=== PATIENT | male | born 1960 | race Caucasian/White ===

== ENCOUNTER 2022-12-08 12:10 | Inpatient (IN) ==
[2022-12-08 14:04] LABS: Basophils # (auto) 0.05 K/uL (0-0.2); Basophils % (auto) 1.2 %; Eosinophils # (auto) 0.13 K/uL (0-0.50); Eosinophils % (auto) 3.1 %; Hematocrit (blood only) 40.7 % (42.0-52.0); Hemoglobin 14.1 g/dl (14.0-18.0); Lymphocytes # (auto) 0.69 K/uL (1.2-3.4); Lymphocytes % (auto) 16.3 %; Mean Corpuscular Hemoglobin 31.6 pg (25.0-34.0); Mean Corpuscular Hgb Conc 34.6 g/dL (32.0-36.0); Mean Corpuscular Volume 91.3 fL (80.0-100.0); Mean Platelet Volume 9.6 fL (9.4-12.4); Monocytes # (auto) 0.27 K/uL (0.11-0.59); Monocytes % (auto) 6.4 %; Neutrophils # (auto) 3.09 K/uL (1.40-6.50); Platelet Count 149 K/uL (130-400); RDW Coefficient of Variation 16.8 % (11.5-14.5); RDW Standard Deviation 54.6 fL (36.4-46.3); Red Blood Count 4.46 M/uL (4.70-6.10); White Blood Count 4.23 K/ul (4.8-10.8)
[2022-12-08 14:20] LABS: INR 1.1 (0.9-1.1); Partial Thromboplastin Time 27.3 Seconds (21.0-31.0); Prothrombin Time 11.3 Seconds (9.0-12.0)
[2022-12-08 15:10] LABS: Alanine Aminotransferase 14 U/L (7-52); Albumin Globulin Ratio 0.8 (0.9-2); Albumin Level 3.4 gm/dl (3.4-5.0); Alkaline Phosphatase 166 U/L (34-104); Anion Gap 6 (3-11); Aspartate Aminotransferase 31 U/L (13-39); BUN Creatinine Ratio 10.2 (10-20); Bilirubin,Total 0.9 mg/dl (0.2-1.0); Blood Urea Nitrogen 5 mg/dl (6-23); Calcium 9.2 mg/dl (8.5-10.1); Carbon Dioxide 27 mmol/L (21-32); Chloride 101 mmol/L (98-107); Est GFR (African American) 134.8 ml/min; Est GFR (Non-African American) 116.3 ml/min; Globulin 4.5 gm/dl (2.5-4.0); Glucose 98 mg/dl (70-99(Fasting)); Magnesium 1.5 mg/dl (1.7-2.4); Potassium 3.9 mmol/L (3.5-5.1); Sodium 134 mmol/L (136-145); Total Protein 7.9 gm/dl (6.0-8.3)
--- NOTE | 2022-12-08 15:10 | XRay Report ---
SINGLE VIEW CHEST CLINICAL HISTORY: Dyspnea. FINDINGS: An AP, portable, upright chest radiograph is obtained. No prior studies are available for c omparison at the time of dictation. The examination is degraded by portable technique and apical lord otic positioning. The heart appears enlarged and is partially obscured. There is a moderate layering right pleural effusion with consolidation of the right lower lung. Left lung is grossly clear noting basilar atelectasis. No pneumothorax is seen. The skeletal structures are osteopenic. There are heale d left-sided rib fractures. IMPRESSION: 1. Moderate layering right pleural effusion with associated consolidation of the right lower lung. 2. The left lung appears clear. 3. Cardiomegaly. ACT 112: Negative or not required by law. Electronically signed by: Tommie Dan M.D. 12/08/2022 3:08 PM
--- NOTE | 2022-12-08 17:18 | Electrocardiogram Report ---
Test Reason : Blood Pressure : / mmHG Vent. Rate : 103 BPM Atrial Rate : 103 BPM P-R Int : 180 ms QRS Dur : 080 ms QT Int : 338 ms P-R-T Axes : 053 -02 019 degrees QTc Int : 442 ms Poor data quality, interpretation may be adversely affected Sinus tachycardia with occasional Premature ventricular complexes Low voltage QRS Cannot rule out Anterior infarct , age undetermined Abnormal ECG No previous ECGs available Confirmed by Theodore Whitney ([id number]) on 12/08/2022 5:17:43 PM Referred By: Confirmed By:Martín Whitney
[2022-12-08] MEDS ORDERED: FUROSEMIDE 40 MG/4 ML VIAL IV ONE ×2 (18:04→18:13)
[2022-12-08] MEDS ORDERED: SPIRONOLACTONE 100 MG TAB PO STA (18:13)
--- NOTE | 2022-12-08 18:13 | History & Physical Report ---
Date of Service December 08, 2022 Assessment & Plan (1) Decompensation of cirrhosis of liver: (2) Anasarca: (3) Ascites due to alcoholic cirrhosis: (4) Portal hypertensive gastropathy: (5) Alcoholic cirrhosis of liver with ascites: Plan This is a 62-year-old male who has significant past medical history of alcoholic cirrhosis of liver with ascites, portal hypertensive gastropathy, MARCO, hypertension, thrombocytopenia, history of MRSA who presents to ED at referral of cardiology in setting of decompensated cirrhosis. Decompensated cirrhosis Anasarca Alcoholic cirrhosis of liver with ascites Portal hypertensive gastropathy Admit to PCU Consult gastroenterology Diuresis with IV Lasix 60 mg twice daily Continue Aldactone 100 mg twice daily Strict I's and O's, daily weights Fluid restrict 1800 mL Perform diagnostic and therapeutic paracentesis with cell count, protein, LDH albumin Hypomagnesemia mag 1g x 2 in ED follow repeat mag level Alcohol abuse pt with long standing hx of alcohol use do not feel pt requires AWSS protocol at this time continue thiamine and folic acid Dvt ppx: SQ heparin Dispo: PCU, CM consult FULL CODE PCP: Cathy Peguero Pt was seen and examined in collaboration with Dr. Antonio, please see addendum A total of 75 minutes were spent with greater than 50% of that time face to face with the patient, personally reviewing all current laboratories, imaging studies, past medication reconciliation, outpatient chart review, and discussion with specialists to collaborate care for the patient with attending. Please see attending documentation for corrections and/or additions. History of Present Illness Chief Complaint: SOB x 2 days, referred by cardiology. Primary Care Provider: Cathy Peguero This is a 62-year-old male who has significant past medical history of alcoholic cirrhosis of liver with ascites, portal hypertensive gastropathy, MARCO, hypertension, thrombocytopenia, history of MRSA who presents to ED at referral of cardiology in setting of decompensated cirrhosis. He was sent to Cardiology today from PCP due to fluid retention. Saturator referred to ER due to anasarca 2/2 Cirrhosis. Pt c/o of SOB since yesterday. He reports worsened lower extremity swelling and abd distension over past 2-3 weeks. He last had a paracentesis in October. He was last hospitalized in September and requiring a SNF stay for rehab. He denies f/c/s, chest pain, URI sx, n/v/d, abd pain, change in bowel or urinary habits. He follows with GI, Dr. Fields. He does admit to not always being compliant with his meds due to travel, etc. Pt reports being under a lot of stress the past week due to roommate having a run in with the law. Due to stress he hasn't be taking meds as prescribed. He does ambulate with a walker due to knee pain. He does have chronic wounds to lower ext with which he has wrapped once a week.He does not wish to return to rehab as he wishes to save his days for upcoming knee replacement. He does wish to have help with finding subsequent housing.In ED patient made hemodynamically stable although mildly hypertensive and tachycardic.He did have anasarca along with significant ascites. CBC and CMP concerning for sodium 134, mag 1.5, DBC 4.23 and H&H s table 14.1 and 40.7. Chest x-ray with significant layering right-sided pleural effusion. He received Lasix 80 mg IV along with spironolactone 100 mg x 1. Allergies Allergy/AdvReac Type Severity Reaction Status Date / Time ciprofloxacin Allergy Intermediate Rash Verified 12/08/22 18:32 levofloxacin Allergy Intermediate ERYTHEMATOUS Verified 12/08/22 18:32 RASH Home Medications Medication Instructions Recorded Confirmed Type acetaminophen 325 mg tablet 650 mg PO Q6 PRN FEVER/PAIN 12/08/22 12/08/22 History (Tylenol) allopurinol 100 mg tablet 200 mg PO BID 12/08/22 12/08/22 History calamine phenolated lotion 1 applic topical BID PRN ITCHINESS 12/08/22 12/08/22 History calcium carbonate 300 mg (750 mg) 300 mg PO Q6H PRN Heartburn 12/08/22 12/08/22 History chewable tablet (Tums E-X) cholestyramine-aspartame 4 gram 4 g PO BID PRN Diarrhea 12/08/22 12/08/22 History oral powder (Prevalite) cyclobenzaprine 10 mg tablet 10 mg PO BID PRN MUSCLE SPASMS 12/08/22 12/08/22 History diclofenac sodium 1 % topical gel 2 g topical QID PRN Pain 12/08/22 12/08/22 History diphenhydramine HCl 25 mg capsule 25 mg PO Q6H PRN Itching 12/08/22 12/08/22 History (Benadryl) folic acid 1 mg tablet 1 mg PO DAILY 12/08/22 12/08/22 History furosemide 40 mg tablet (Lasix) 80 mg PO QAM 12/08/22 12/08/22 History hydrocodone 10 mg-acetaminophen 1 tab PO Q8H PRN Pain 12/08/22 12/08/22 History 325 mg tablet loratadine 10 mg tablet (Claritin) 10 mg PO DAILY PRN ITCHINESS 12/08/22 12/08/22 History multivitamin 1 tab PO DAILY 12/08/22 12/08/22 History nystatin 100,000 unit/gram topical 1 applic topical BID PRN ABD FOLDS 12/08/22 12/08/22 History cream NEEDED ondansetron HCl 4 mg tablet 4 mg PO Q6H PRN NAUSEA/VOMITING 12/08/22 12/08/22 History potassium chloride 20 mEq 40 meq PO BID 12/08/22 12/08/22 History tablet,extended release(part/cryst) spironolactone 100 mg tablet 100 mg PO BID 12/08/22 12/08/22 History tamsulosin 0.4 mg capsule 0.4 mg PO DAILY 12/08/22 12/08/22 History thiamine HCl (vitamin B1) 100 mg 100 mg PO DAILY 12/08/22 12/08/22 History tablet (Vitamin B-1) vitamin E 670 mg (1,000 unit) 670 mg PO DAILY 12/08/22 12/08/22 History capsule zinc acetate 50 mg (zinc) capsule 50 mg PO DAILY 12/08/22 12/08/22 History Past Med/Surg History Medical History (Updated 12/08/22 @ 19:15 by Sumi Osborne PA-C) Alcoholic cirrhosis of liver with ascites Esophageal varices GERD (gastroesophageal reflux disease) HTN (hypertension) Portal hypertensive gastropathy Surgical History (Updated 12/08/22 @ 18:15 by Sumi Osborne PA-C) History of colonoscopy History of lumbar fusion Hx of esophagogastroduodenoscopy Stigmata of prior banding/mild portal gastropathy and body and fundus/portal duodenopathy with edema and congestion of duodenum 05/2022 Hx of tonsillectomy Family History (Updated 12/08/22 @ 19:14 by Sumi Osborne PA-C) Father Alzheimer disease Mother Pneumonia Social History (Updated 12/08/22 @ 19:14 by Suim Osborne PA-C) Smoking Status: Never smoker Hx Alcohol Use: Yes Alcohol type: beer and hard liquor Alcohol Intake Frequency: 4 or More x per/Week Hx Substance Use: No Preferred Language: Bengali Feels Safe at Home: No Review of Systems Review of Systems: All systems reviewed & are unremarkable except as noted in HPI & below Physical Exam Physical Exam: Please refer to Dr. Antonio addendum for physical exam findings. Results & Data Results & Data ([facility]) Vital Signs (Past 12 Hours) Vital Signs Temp Pulse Pulse Resp BP BP Pulse Ox 12/08/22 18:04 23 91 12/08/22 17:49 98 H 23 152/86 H 93 12/08/22 17:47 95 12/08/22 17:44 12/08/22 12:24 36.8 C 101 H 19 145/89 H 97 O2 Del Method O2 Flow Rate 12/08/22 18:04 Room Air 12/08/22 17:49 Nasal Cannula 2 12/08/22 17:47 Nasal Cannula 2 12/08/22 17:44 Nasal Cannula 2 12/08/22 12:24 Nasal Cannula 2 Diagnostic Findings Chest X-Ray 12/08/22 12:25 SINGLE VIEW CHEST CLINICAL HISTORY: Dyspnea. FINDINGS: An AP, portable, upright chest radiograph is obtained. No prior studies are available for comparison at the time of dictation. The examination is degraded by portable technique and apical lordotic positioning. The heart appears enlarged and is partially obscured. There is a moderate layering right pleural effusion with consolidation of the right lower lung. Left lung is grossly clear noting basilar atelectasis. No pneumothorax is seen. The skeletal structures are osteopenic. There are healed left-sided rib fractures. IMPRESSION: 1. Moderate layering right pleural effusion with associated consolidation of the right lower lung. 2. The left lung appears clear. 3. Cardiomegaly. ACT 112: Negative or not required by law. Electronically signed by: Tommie Dan M.D. 12/08/2022 3:08 PM Medications Administered Medication List Magnesium Sulfate/Dextrose (Magnesium Sulfate / D5w) 1 gm in 100 mls @ 100 mls/hr IV Q1H CHRISTIAN Stop: 12/08/22 20:43 Last Admin: 12/08/22 19:04 Dose: 100 mls/hr Documented By: JR Discontinued Medications Furosemide (Furosemide 40 Mg/4 Ml Vial) 40 mg IV ONE ONE Stop: 12/08/22 18:05 Last Admin: 12/08/22 18:34 Dose: Not Given Documented By: NMS Furosemide (Furosemide 40 Mg/4 Ml Vial) 80 mg IV ONE ONE Stop: 12/08/22 18:14 Last Admin: 12/08/22 19:02 Dose: 80 mg Documented By: JR Spironolactone (Spironolactone 100 Mg Tab) 100 mg PO NOW STA Stop: 12/08/22 18:14 Last Admin: 12/08/22 19:03 Dose: 100 mg Documented By: JR ECG Rate (beats per minute): 103 Rhythm: sinus tachycardia Findings: + PVC COVID-19 Results Results COVID-19 Adm Lab Results: RBC 4.46 M/uL (4.70-6.10) L 12/08/22 WBC 4.23 K/ul (4.8-10.8) L 12/08/22 Hgb 14.1 g/dl (14.0-18.0) 12/08/22 Hct 40.7 % (42.0-52.0) L 12/08/22 Plt Count 149 K/uL (130-400) 12/08/22 Neutrophils (%) (Auto) 73.0 % 12/08/22 Lymphocytes (%) (Auto) 16.3 % 12/08/22 Monocytes # (Auto) 0.27 K/uL (0.11-0.59) 12/08/22 Eosinophils # (Auto) 0.13 K/uL (0-0.50) 12/08/22 Immature Granulocyte % (Auto) 0.0 % 12/08/22 Neutrophils # (Auto) 3.09 K/uL (1.40-6.50) 12/08/22 Lymphocytes # (Auto) 0.69 K/uL (1.2-3.4) L 12/08/22 Monocytes # (Auto) 0.27 K/uL (0.11-0.59) 12/08/22 Eosinophils # (Auto) 0.13 K/uL (0-0.50) 12/08/22 Basophils # (Auto) 0.05 K/uL (0-0.2) 12/08/22 Immature Granulocyte # (Auto) 0.00 K/uL (0.01-0.20) L 12/08 Na 134 mmol/L (136-145) L 12/08/22 K 3.9 mmol/L (3.5-5.1) 12/08/22 Cl 101 mmol/L (98-107) 12/08/22 CO2 27 mmol/L (21-32) 12/08/22 Anion Gap 6 (3-11) 12/08/22 BUN 5 mg/dl (6-23) L 12/08/22 Creatinine 0.49 mg/dl (0.6-1.4) L 12/08/22 BUN/Creatinine Ratio 10.2 (10-20) 12/08/22 Glucose Level 98 mg/dl (70-99(Fasting)) 12/08/22 Ca 9.2 mg/dl (8.5-10.1) 12/08/22 Total Bilirubin 0.9 mg/dl (0.2-1.0) 12/08/22 AST/SGOT 31 U/L (13-39) 12/08/22 ALT/SGPT 14 U/L (7-52) 12/08/22 Alkaline Phosphatase 166 U/L (34-104) H 12/08/22 Total Protein 7.9 gm/dl (6.0-8.3) 12/08/22 Albumin 3.4 gm/dl (3.4-5.0) 12/08/22 Globulin 4.5 gm/dl (2.5-4.0) H 12/08/22 Albumin/Globulin Ratio 0.8 (0.9-2) L 12/08/22 PTT 27.3 Seconds (21.0-31.0) 12/08/22 INR 1.1 (0.9-1.1) 12/08/22 SARS-CoV-2, RNA, NAAT NEGATIVE (NEGATIVE) 12/08/22 Chest X-Ray 12/08/22 Code Status & VTE Plan Code Status FULL CODE Supervising Physician Co-Signing Physician Notes Date of Service: December 08, 2022 History and physical exam performed by me. History notable for 62-year-old man with hypertension, alcoholic cirrhosis who presents with abdominal distention, weight gain, shortness of breath, orthopnea over the past couple of weeks. Acknowledges poor adherence to medication due to home issues. Reports adherence to fluid and low-salt diet. Denies any abdominal pain, fevers or chills. On physical exam, General: Obese, in noo acute distress Eyes: PERRL, conjunctivae normal, not pale, anicteric sclerae, EOM intact bilaterally ENMT: External ear and nose normal, oropharynx normal Respiratory: Normal respiratory effort, no respiratory distress,diminished breath sounds lung bases Cardiovascular: RRR S1 S2 Gastrointestinal (Abdomen): Abdomen is markedly distended, non-tender to palpation, normal bowel sounds Musculoskeletal: Bilateral pedal edema wrapped Neurologic: Alert and oriented x 3, No focal weakness, sensation grossly intact Psychiatric: Alert and oriented x 3, euthymic affect, no depressed affect Labs notable for sodium of 134, alkaline phosphatase of 166, magnesium of 1.5. Chest x-ray reviewed, showed moderate right pleural effusion. Decompensated liver cirrhosis with ascites Pleural effusion Patient counseled on need for medication adherence. ER ordered IV Lasix 80 mg. We will continue IV 60 mg twice daily for now. Continue spironolactone Paracentesis ordered. Monitor I/O Daily weights GI consult Check MELD labs Other plans as detailed by Sumi Osborne PA-C
--- NOTE | 2022-12-08 18:15 | Emergency Department Note ---
Impression & Plan Alcoholic cirrhosis of liver with ascites, Anasarca, HTN (hypertension) ED Provider Note NAME: DARIO SALMERON AGE: 62 SEX: M : 1960 ARRIVES VIA: Ambulance INFORMANT: [Patient][, ] ED PROVIDER(S): [Marc Lynn MD] CHIEF COMPLAINT: Shortness of breath, weight gain MEDICAL DECISION MAKING: Patient presented due to concern for worsening shortness of breath exertional dyspnea and orthopnea with weight gain and leg swelling. Blood work was obtained and IV was established. The patient was noted to have leukopenia with a white count of 4.2 normal hemoglobin and platelet count. The patient's kidney function was unremarkable. Hyponatremia 134. LFTs with an alk phos that was elevated 166 but otherwise unremarkable. COVID-negative. Patient's chest x-ray shows moderate layering right pleural effusion with consolidation of the right lower lung. Left lung is clear. Patient was ordered Lasix 80 IV as well as Aldactone 100 p.o. Patient was admitted to the medicine service by Sumi Osborne PA-C and Dr. Sood. Prior /Outside records reviewed:I did review the patient's most recent cardiology visit from Dr. Scotty harmon [facility]. Patient is on Aldactone 100 mg twice daily. Is also on Lasix 80 mg in the morning patient's blood work was reviewed from September 2022 patient's BUN and creatinine of 28 and 1 respectively. Hyponatremia at 126. Differential diagnosis: Reactive airway disease, pneumonia, pneumothorax, COPD, CHF, infections, cardiac ischemia, pulmonary embolism, musculoskeletal, gastrointestinal, as well as other pathologies. Diagnostics, as interpreted by me: ECG: Sinus tachycardia with PVCs, rate of 103, normal intervals normal axis no ST elevations. Cardiac monitoring: An order was placed for continuous cardiac monitoring. The monitor shows a rate of 98 with sinus rhythm. [Patient was placed on pulse oximetry] Medical decision rules: [none] Imaging studies: See below HPI: Patient presents as a referral from cardiology office as he was seen by Dr. Scotty harmon. The patient does have a known history of cirrhosis and does still drink alcohol but not at the rate that he used to. The patient denies any chest pains but has had associated shortness of breath leg swelling. The patient has noticed 20 pound weight gain since he was seen by his primary care doctor 1 week prior. He has noticed increasing leg swelling and abdominal distention. Patient denies any cough or fever. Patient states that he is compliant with his medications but did not take his morning medications today. The patient is prescribed Lasix and Aldactone. PAST MEDICAL HISTORY: [See Below] PAST SURGICAL HISTORY: [See Below] SOCIAL HISTORY: [See Below] HOME MEDICATIONS: [See Below] ALLERGIES: [See Below] VITALS: [See Below] PHYSICAL EXAMINATION: GENERAL: NAD, [wearing a mask,] non-toxic. EYE EXAM: Normal conjunctiva. PERRL, no anisocoria and EOM's grossly intact w/o pain. NECK: Supple, no nuchal rigidity, no adenopathy, non-tender. No signs of menin gismus. FROM of the neck with good chin to chest and neck extension. No stridor. LUNGS: Decreased breath sounds right chest. HEART: NSR, no MRG. ABDOMEN: Abdomen soft, abdominal distention, normo-active bowel sounds, no masses, no rebound or guarding. BACK: No CVA TTP. SKIN: No rashes and no bruising. UPPER EXTREMITIES: Upper extremities are grossly normal. LOWER EXTREMITIES: Grossly normal, bilateral pitting lower extremity edema. No crepitus NEURO EXAM: A&O x3, cranial nerves II-XII grossly intact, normal speech, moves all 4 extremities. Past Med/Surg History Medical History Alcoholic cirrhosis of liver with ascites Esophageal varices GERD (gastroesophageal reflux disease) HTN (hypertension) Portal hypertensive gastropathy Surgical History History of colonoscopy History of lumbar fusion Hx of esophagogastroduodenoscopy Stigmata of prior banding/mild portal gastropathy and body and fundus/portal duodenopathy with edema and congestion of duodenum 05/2022 Hx of tonsillectomy Family History Father Alzheimer disease Mother Pneumonia Social History Smoking Status: Never smoker Hx Alcohol Use: Yes Alcohol type: hard liquor Alcohol Intake Frequency: 4 or More x per/Week Hx Substance Use: No Preferred Language: Urdu Communication Ability: Effective Starter Cup Powder Mixer Required: No Beliefs That Will Affect Care: None Current Living Situation: Other Current Living Situation Comment: with roommate Feels Safe at Home: No Is there a partner from a previous relationship who is m aking you feel unsafe now?: No Any Concerns about Your Family Situation: No Would You Like to Speak to Someone About Your Situation: No Safety Concerns: Afraid for Self Assistive Devices: Cane and Walker Allergies Allergies Allergy/AdvReac Type Severity Reaction Status Date / Time ciprofloxacin Allergy Intermediate Rash Verified 12/08/22 18:32 levofloxacin Allergy Intermediate ERYTHEMATOUS Verified 12/08/22 18:32 RASH Home Meds Home Medications Medication Instructions Recorded Confirmed acetaminophen 325 mg tablet 650 mg PO Q6 PRN FEVER/PAIN 12/08/22 12/08/22 (Tylenol) allopurinol 100 mg tablet 200 mg PO BID 12/08/22 12/08/22 calamine phenolated lotion 1 applic topical BID PRN ITCHINESS 12/08/22 12/08/22 calcium carbonate 300 mg (750 mg) 300 mg PO Q6H PRN Heartburn 12/08/22 12/08/22 chewable tablet (Tums E-X) cholestyramine-aspartame 4 gram 4 g PO BID PRN Diarrhea 12/08/22 12/08/22 oral powder (Prevalite) cyclobenzaprine 10 mg tablet 10 mg PO BID PRN MUSCLE SPASMS 12/08/22 12/08/22 diclofenac sodium 1 % topical gel 2 g topical QID PRN Pain 12/08/22 12/08/22 diphenhydramine HCl 25 mg capsule 25 mg PO Q6H PRN Itching 12/08/22 12/08/22 (Benadryl) folic acid 1 mg tablet 1 mg PO DAILY 12/08/22 12/08/22 furosemide 40 mg tablet (Lasix) 80 mg PO QAM 12/08/22 12/08/22 hydrocodone 10 mg-acetaminophen 1 tab PO Q8H PRN Pain 12/08/22 12/08/22 325 mg tablet loratadine 10 mg tablet (Claritin) 10 mg PO DAILY PRN ITCHINESS 12/08/22 12/08/22 multivitamin 1 tab PO DAILY 12/08/22 12/08/22 nystatin 100,000 unit/gram topical 1 applic topical BID PRN ABD FOLDS 12/08/22 12/08/22 cream NEEDED ondansetron HCl 4 mg tablet 4 mg PO Q6H PRN NAUSEA/VOMITING 12/08/22 12/08/22 potassium chloride 20 mEq 40 meq PO BID 12/08/22 12/08/22 tablet,extended release(part/cryst) spironolactone 100 mg tablet 100 mg PO BID 12/08/22 12/08/22 tamsulosin 0.4 mg capsule 0.4 mg PO DAILY 12/08/22 12/08/22 thiamine HCl (vitamin B1) 100 mg 100 mg PO DAILY 12/08/22 12/08/22 tablet (Vitamin B-1) vitamin E 670 mg (1,000 unit) 670 mg PO DAILY 12/08/22 12/08/22 capsule zinc acetate 50 mg (zinc) capsule 50 mg PO DAILY 12/08/22 12/08/22 Results & Data (ED) Vital Signs Vital Signs - 24 hr 12/08/22 12:24 12/08/22 17:44 12/08/22 17:47 Temperature 36.8 C Temperature Source Temporal Artery Scan Pulse Rate 101 H Pulse Rate [Apical] Respiratory Rate 19 Respiratory Effort / Characteristics Non-Labored Respiratory Depth Respiratory Pattern Blood Pressure 145/89 H Blood Pressure [Right Arm] Blood Pressure Mean 107 Blood Pressure Mean [Right Arm] Blood Pressure Position [Right Arm] Pulse Oximetry 97 95 Oxygen Delivery Method Nasal Cannula Nasal Cannula Nasal Cannula Oxygen Flow Rate 2 2 2 Sepsis Recent Fever Within 48 Hours No Sepsis New/Unexplained Change in Mental Status N/A Sepsis Action Taken by Nursing No Action Required 12/08/22 17:49 12/08/22 18:04 Temperature Temperature Source Pulse Rate Pulse Rate [Apical] 98 H Respiratory Rate 23 23 Respiratory Effort / Characteristics Non-Labored Non-Labored Spontaneous Respiratory Depth Normal Normal Respiratory Pattern Regular Regular Blood Pressure Blood Pressure [Right Arm] 152/86 H Blood Pressure Mean Blood Pressure Mean [Right Arm] 108 Blood Pressure Position [Right Arm] Semi-fowlers Pulse Oximetry 93 91 Oxygen Delivery Method Nasal Cannula Room Air Oxygen Flow Rate 2 Sepsis Recent Fever Within 48 Hours Sepsis New/Unexplained Change in Mental Status Sepsis Action Taken by [facility] Medications Current Medication List: was personally reviewed by me Laboratory Data Attestation: I reviewed the patient's lab results. 12/08/22 13:41 12/08/22 13:41 Lab Results 12/08/22 12/08/22 12/08/22 Range/Units 13:41 13:41 13:41 WBC 4.23 L (4.8-10.8) K/ul RBC 4.46 L (4.70-6.10) M/uL Hgb 14.1 (14.0-18.0) g/dl Hct 40.7 L (42.0-52.0) % MCV 91.3 (80.0-100.0) fL MCH 31.6 (25.0-34.0) pg MCHC 34.6 (32.0-36.0) g/dL RDW Std Deviation 54.6 H (36.4-46.3) fL RDW Coeff of Farzad 16.8 H (11.5-14.5) % Plt Count 149 (130-400) K/uL MPV 9.6 (9.4-12.4) fL Immature Gran % (Auto) 0.0 % Neut % (Auto) 73.0 % Lymph % (Auto) 16.3 % [place] % (Auto) 6.4 % Eos % (Auto) 3.1 % Baso % (Auto) 1.2 % Neut # (Auto) 3.09 (1.40-6.50) K/uL Lymph # (Auto) 0.69 L (1.2-3.4) K/uL [place] # (Auto) 0.27 (0.11-0.59) K/uL Eos # (Auto) 0.13 (0-0.50) K/uL Baso # (Auto) 0.05 (0-0.2) K/uL Immature Gran # (Auto) 0.00 L (0.01-0.20) K/uL PT 11.3 (9.0-12.0) Seconds INR 1.1 (0.9-1.1) APTT 27.3 (21.0-31.0) Seconds PTT Ratio 1.0 Sodium 134 L (136-145) mmol/L Potassium 3.9 (3.5-5.1) mmol/L Chloride 101 (98-107) mmol/L Carbon Dioxide 27 (21-32) mmol/L Anion Gap 6 (3-11) BUN 5 L (6-23) mg/dl Creatinine 0.49 L (0.6-1.4) mg/dl Est Cr Clr Drug Dosing Not Reportable Est GFR ( Amer) 134.8 ml/min Est GFR (Non-Af Amer) 116.3 ml/min BUN/Creatinine Ratio 10.2 (10-20) Glucose 98 (70-99(Fasting)) mg/dl Osmolality (280-300) mOsm/kg Calcium 9.2 (8.5-10.1) mg/dl Magnesium 1.5 L (1.7-2.4) mg/dl Total Bilirubin 0.9 (0.2-1.0) mg/dl AST 31 (13-39) U/L ALT 14 (7-52) U/L Alkaline Phosphatase 166 H (34-104) U/L Total Protein 7.9 (6.0-8.3) gm/dl Albumin 3.4 (3.4-5.0) gm/dl Globulin 4.5 H (2.5-4.0) gm/dl Albumin/Globulin Ratio 0.8 L (0.9-2) SARS-CoV-2, RNA, NAAT (NEGATIVE) 12/08/22 12/08/22 Range/Units 13:41 18:05 WBC (4.8-10.8) K/ul RBC (4.70-6.10) M/uL Hgb (14.0-18.0) g/dl Hct (42.0-52.0) % MCV (80.0-100.0) fL MCH (25.0-34.0) pg MCHC (32.0-36.0) g/dL RDW Std Deviation (36.4-46.3) fL RDW Coeff of Farzad (11.5-14.5) % Plt Count (130-400) K/uL MPV (9.4-12.4) fL Immature Gran % (Auto) % Neut % (Auto) % Lymph % (Auto) % [place] % (Auto) % Eos % (Auto) % Baso % (Auto) % Neut # (Auto) (1.40-6.50) K/uL Lymph # (Auto) (1.2-3.4) K/uL [place] # (Auto) (0.11-0.59) K/uL Eos # (Auto) (0-0.50) K/uL Baso # (Auto) (0-0.2) K/uL Immature Gran # (Auto) (0.01-0.20) K/uL PT (9.0-12.0) Seconds INR (0.9-1.1) APTT (21.0-31.0) Seconds PTT Ratio Sodium (136-145) mmol/L Potassium (3.5-5.1) mmol/L Chloride (98-107) mmol/L Carbon Dioxide (21-32) mmol/L Anion Gap (3-11) BUN (6-23) mg/dl Creatinine (0.6-1.4) mg/dl Est Cr Clr Drug Dosing Est GFR ( Amer) ml/min Est GFR (Non-Af Amer) ml/min BUN/Creatinine Ratio (10-20) Glucose (70-99(Fasting)) mg/dl Osmolality 283 (280-300) mOsm/kg Calcium (8.5-10.1) mg/dl Magnesium (1.7-2.4) mg/dl Total Bilirubin (0.2-1.0) mg/dl AST (13-39) U/L ALT (7-52) U/L Alkaline Phosphatase (34-104) U/L Total Protein (6.0-8.3) gm/dl Albumin (3.4-5.0) gm/dl Globulin (2.5-4.0) gm/dl Albumin/Globulin Ratio (0.9-2) SARS-CoV-2, RNA, NAAT NEGATIVE (NEGATIVE) Administered Medications Acetaminophen (Acetaminophen 325 Mg Tab) 650 mg PO Q4H PRN PRN Reason: Pain or Fever Stop: 01/07/23 21:19 Last Admin: 12/09/22 17:34 Dose: 650 mg Documented By: Admin: 12/09/22 03:03 Dose: 650 mg Documented By: LEA Allopurinol (Allopurinol 100 Mg Tab) 200 mg PO BID [facility] Stop: 01/07/23 21:59 Last Admin: 12/09/22 09:08 Dose: 200 mg Documented By: Admin: 12/08/22 22:27 Dose: 200 mg Documented By: LEA Folic Acid (Folic Acid 1 Mg Tab) 1 mg PO DAILY [facility] Stop: 01/08/23 08:59 Last Admin: 12/09/22 09:08 Dose: 1 mg Documented By: REENA Furosemide (Furosemide 40 Mg/4 Ml Vial) 60 mg IV BID17 [facility] Stop: 01/08/23 08:59 Last Admin: 12/09/22 17:34 Dose: 60 mg Documented By: Admin: 12/09/22 09:09 Dose: 60 mg Documented By: REENA Guaifenesin (Guaifenesin 600 Mg Tabcr) 600 mg PO Q12 [facility] Stop: 01/08/23 17:24 Last Admin: 12/09/22 18:39 Dose: 600 mg Documented By: REENA Multivitamins (Multivitamin Tab) 1 tab PO DAILY [facility] Stop: 01/08/23 08:59 Last Admin: 12/09/22 09:08 Dose: 1 tab Documented By: REENA Pantoprazole Sodium (Pantoprazole 40 Mg Tab) 40 mg PO QAM [facility] Stop: 01/08/23 09:29 Last Admin: 12/09/22 12:01 Dose: 40 mg Documented By: REENA Potassium Chloride (Potassium Chloride Crtab 20 Meq Tabcr) 40 meq PO BID [facility] Stop: 01/07/23 21:59 Last Admin: 12/09/22 09:08 Dose: 40 meq Documented By: Admin: 12/08/22 22:27 Dose: 40 meq Documented By: LEA Spironolactone (Spironolactone 100 Mg Tab) 100 mg PO BID [facility] Stop: 01/08/23 08:59 Last Admin: 12/09/22 09:08 Dose: 100 mg Documented By: REENA Tamsulosin HCl (Tamsulosin Hcl 0.4 Mg Cap) 0.4 mg PO DAILY [facility] Stop: 01/08/23 08:59 Last Admin: 12/09/22 09:09 Dose: 0.4 mg Documented By: REENA Thiamine HCl (Thiamine Hcl 100 Mg Tab) 100 mg PO DAILY [facility] Stop: 01/08/23 08:59 Last Admin: 12/09/22 09:09 Dose: 100 mg Documented By: REEAN Zinc Sulfate (Zinc Sulfate 220 Mg Capsule) 220 mg PO DAILY [facility] Stop: 01/08/23 08:59 Last Admin: 12/09/22 09:09 Dose: 220 mg Documented By: REENA Discontinued Medications Albumin Human (Albumin Human 25% 12.5 Gm/50 Ml Vial) 50 gm IV ONE ONE Stop: 12/09/22 09:01 Last Admin: 12/09/22 11:47 Dose: Not Given Documented By: REENA Calcium Carbonate (Calcium Carbonate 500 Mg Chewable Tab) 500 mg PO NOW STA Stop: 12/08/22 23:09 Last Admin: 12/08/22 23:17 Dose: 500 mg Documented By: LEA Furosemide (Furosemide 40 Mg/4 Ml Vial) 40 mg IV ONE ONE Stop: 12/08/22 18:05 Last Admin: 12/08/22 18:34 Dose: Not Given Documented By: STACIA Furosemide (Furosemide 40 Mg/4 Ml Vial) 80 mg IV ONE ONE Stop: 12/08/22 18:14 Last Admin: 12/08/22 19:02 Dose: 80 mg Documented By: Magnesium Sulfate/Dextrose (Magnesium Sulfate / D5w) 1 gm in 100 mls @ 100 mls/hr IV Q1H [facility] Stop: 12/08/22 20:43 Last Infusion: 12/08/22 21:35 Dose: 0 mls/hr Documented By: Admin: 12/08/22 20:33 Dose: 100 mls/hr Documented By: Infusion: 12/08/22 20:04 Dose: 100 mls/hr Documented By: Admin: 12/08/22 19:04 Dose: 100 mls/hr Documented By: Spironolactone (Spironolactone 100 Mg Tab) 100 mg PO NOW STA Stop: 12/08/22 18:14 Last Admin: 12/08/22 19:03 Dose: 100 mg Documented By: Imaging Data Radiologist's Impression: Chest X-Ray 12/08/22 12:25 SINGLE VIEW CHEST CLINICAL HISTORY: Dyspnea. FINDINGS: An AP, portable, upright chest radiograph is obtained. No prior studies are available for comparison at the time of dictation. The examination is degraded by portable technique and apical lordotic positioning. The heart appears enlarged and is partially obscured. There is a moderate layering right pleural effusion with consolidation of the right lower lung. Left lung is grossly clear noting basilar atelectasis. No pneumothorax is seen. The skeletal structures are osteopenic. There are healed left-sided rib fractures. IMPRESSION: 1. Moderate layering right pleural effusion with associated consolidation of the right lower lung. 2. The left lung appears clear. 3. Cardiomegaly. ACT 112: Negative or not required by law. Electronically signed by: Tommie Dan M.D. 12/08/2022 3:08 PM Discharge Plan Visit Data Chief Complaint: Shortness of Breath/Dyspnea Stated Complaint: shortness of breath ED Provider: Marc Lynn Discharge Problem: Alcoholic cirrhosis of liver with ascites, Anasarca, HTN (hypertension) Patient Disposition: Admitted As Inpatient Discharge Instructions Interventions: ED Discharge Assessment Last Done: 12/08/22 20:59
[2022-12-08] MEDS ORDERED: MAGNESIUM SULFATE / D5W 1 GM/100 ML BAG IV STA (18:43)
[2022-12-08] MEDS: MAGNESIUM SULFATE / D5W 1 GM/100 ML BAG IV SCH ×2 (19:04→20:33)
--- NOTE | 2022-12-08 19:08 | Communication Note ---
Date of Service: December 08, 2022 History and physical exam performed by me. History notable for 62-year-old man with hypertension, alcoholic cirrhosis who presents with abdominal distention, weight gain, shortness of breath, orthopnea over the past couple of weeks. Acknowledges poor adherence to medication due to home issues. Reports adherence to fluid and low-salt diet. Denies any abdominal pain, fevers or chills. On physical exam, General: Obese, in noo acute distress Eyes: PERRL, conjunctivae normal, not pale, anicteric sclerae, EOM intact bilaterally ENMT: External ear and nose normal, oropharynx normal Respiratory: Normal respiratory effort, no respiratory distress,diminished breath sounds lung bases Cardiovascular: RRR S1 S2 Gastrointestinal (Abdomen): Abdomen is markedly distended, non-tender to palpation, normal bowel sounds Musculoskeletal: Bilateral pedal edema wrapped Neurologic: Alert and oriented x 3, No focal weakness, sensation grossly intact Psychiatric: Alert and oriented x 3, euthymic affect, no depressed affect Labs notable for sodium of 134, alkaline phosphatase of 166, magnesium of 1.5. Chest x-ray reviewed, showed moderate right pleural effusion. Decompensated liver cirrhosis with ascites Pleural effusion Patient counseled on need for medication adherence. ER ordered IV Lasix 80 mg. We will continue IV 60 mg twice daily for now. Continue spironolactone Paracentesis ordered. Monitor I/O Daily weights GI consult Other plans as detailed by Sumi Osborne PA-C
[2022-12-08] MEDS ORDERED: POLYETHYLENE (MIRALAX) 17 GM PACK PO PRN (21:20)
[2022-12-08] MEDS ORDERED: ONDANSETRON INJ 2 MG/ML 2 ML VIAL IV PRN (21:20)
[2022-12-08] MEDS ORDERED: MAGNESIUM HYDROXIDE SUSP 30 ML UDC PO PRN (21:20)
[2022-12-08] MEDS: allopurinoL 100 MG TAB PO SCH (22:27)
[2022-12-08] MEDS: POTASSIUM CHLORIDE CRTAB 20 MEQ TABCR PO SCH (22:27)
[2022-12-08] MEDS ORDERED: CALCIUM CARBONATE 500 MG CHEWABLE TAB PO STA (23:08)
[2022-12-09] MEDS: ACETAMINOPHEN 325 MG TAB PO PRN ×2 (03:03→17:34)
[2022-12-09 07:03] LABS: Basophils # (auto) 0.04 K/uL (0-0.2); Basophils % (auto) 0.9 %; Eosinophils # (auto) 0.22 K/uL (0-0.50); Eosinophils % (auto) 4.8 %; Hematocrit (blood only) 37.2 % (42.0-52.0); Hemoglobin 13.2 g/dl (14.0-18.0); Immature Granulocytes # (auto) 0.01 K/uL (0.01-0.20); Immature Granulocytes % (auto) 0.2 %; Lymphocytes # (auto) 0.62 K/uL (1.2-3.4); Lymphocytes % (auto) 13.4 %; Mean Corpuscular Hemoglobin 32.6 pg (25.0-34.0); Mean Corpuscular Hgb Conc 35.5 g/dL (32.0-36.0); Mean Corpuscular Volume 91.9 fL (80.0-100.0); Mean Platelet Volume 9.4 fL (9.4-12.4); Monocytes # (auto) 0.38 K/uL (0.11-0.59); Monocytes % (auto) 8.2 %; Neutrophils # (auto) 3.36 K/uL (1.40-6.50); Neutrophils % (auto) 72.5 %; Platelet Count 138 K/uL (130-400); RDW Coefficient of Variation 16.8 % (11.5-14.5); RDW Standard Deviation 55.1 fL (36.4-46.3); Red Blood Count 4.05 M/uL (4.70-6.10); White Blood Count 4.63 K/ul (4.8-10.8)
[2022-12-09 07:20] LABS: Albumin Globulin Ratio 0.8 (0.9-2); Albumin Level 3.3 gm/dl (3.4-5.0); BUN Creatinine Ratio 10.9 (10-20); Bilirubin,Total 1.3 mg/dl (0.2-1.0); Calcium 9.1 mg/dl (8.5-10.1); Est GFR (African American) 128.5 ml/min; Est GFR (Non-African American) 110.9 ml/min; Globulin 4.3 gm/dl (2.5-4.0); Magnesium 1.5 mg/dl (1.7-2.4); Potassium 3.8 mmol/L (3.5-5.1); Total Protein 7.6 gm/dl (6.0-8.3)
[2022-12-09] MEDS ORDERED: ALBUMIN HUMAN 25% 12.5 GM/50 ML VIAL IV ONE (09:00)
[2022-12-09] MEDS: MULTIVITAMIN TAB PO SCH (09:08)
[2022-12-09] MEDS: SPIRONOLACTONE 100 MG TAB PO SCH ×2 (09:08→21:13)
[2022-12-09] MEDS: FOLIC ACID 1 MG TAB PO SCH (09:08)
[2022-12-09] MEDS: allopurinoL 100 MG TAB PO SCH ×2 (09:08→21:13)
[2022-12-09] MEDS: POTASSIUM CHLORIDE CRTAB 20 MEQ TABCR PO SCH ×2 (09:08→21:12)
[2022-12-09] MEDS: ZINC SULFATE 220 MG CAPSULE PO SCH (09:09)
[2022-12-09] MEDS: THIAMINE HCL 100 MG TAB PO SCH (09:09)
[2022-12-09] MEDS: FUROSEMIDE 40 MG/4 ML VIAL IV SCH ×2 (09:09→17:34)
[2022-12-09] MEDS: TAMSULOSIN HCL 0.4 MG CAP PO SCH (09:09)
--- NOTE | 2022-12-09 10:01 | Hospitalist Progress Note ---
Date of Service December 09, 2022 Assessment & Plan (1) Decompensation of cirrhosis of liver: (2) Anasarca: (3) Ascites due to alcoholic cirrhosis: (4) Portal hypertensive gastropathy: (5) Alcoholic cirrhosis of liver with ascites: Plan This is a 62-year-old male who has significant past medical history of alcoholic cirrhosis of liver with ascites, portal hypertensive gastropathy, MARCO, hypertension, thrombocytopenia, history of MRSA who presents to ED at referral of cardiology in setting of decompensated cirrhosis. Decompensated cirrhosis Anasarca Alcoholic cirrhosis of liver with ascites Portal hypertensive gastropathy Admitted to PCU MELD 8 Gastroenterology consulted Diuresis with IV Lasix 60 mg twice daily Continue Aldactone 100 mg twice daily Strict I's and O's, daily weights Fluid restrict 1800 mL Perform diagnostic and therapeutic paracentesis with cell count, protein, LDH albumin Patient diuresed quite a bit with IV Lasix and spironolactone. He was taken for paracentesis, however despite significant abdominal distention, only small ascites identified on ultrasound We will continue with diuresis for now, and we will continue to closely monitor Acute resp. failure w/ hypoxia - currently still on 4 L of suppl. O2 - secondary to above - cont. diuresis - wean off O2 as available Hypomagnesemia replete and monitor Alcohol abuse pt with long standing hx of alcohol use do not feel pt requires AWSS protocol at this time continue thiamine and folic acid Dvt ppx: SQ heparin Dispo: PCU, CM consult FULL CODE PCP: Cathy Peguero Admission and Anticipated Discharge Date Admission Date: December 08, 2022 Subjective Pt seen in follow up of resp. failure w/ hypoxia, d/t fluid overload, decompensated cirrhosis Currently patient is sitting up in bed, in no acute distress, continues to be on supplemental oxygen Reports breathing is easier He has diuresed quite a bit since his admission He was taken for paracentesis, however despite significant abdominal distention, no significant ascites identified on ultrasound No fevers chills chest pain. Mild abdominal discomfort. Review of Systems Review of Systems: All systems reviewed & are unremarkable except as noted in Subjective Physical Exam Physical Exam: General: Obese M, in no acute distress Eyes: PERRL, EOMI. conjunctivae normal, not pale, anicteric sclerae ENMT: External ear and nose normal, oropharynx normal Respiratory: Normal respiratory effort, no respiratory distress,diminished breath sounds lung bases Cardiovascular: RRR, S1 S2 Gastrointestinal (Abdomen): Abdomen is markedly distended, non-tender to palpation, normal bowel sounds Musculoskeletal: + LE edema b/l Neuro/Psych: Alert and oriented x 3, speech fluent, no facial symmetry, moves extremities Results & Data Results & Data ([facility]) Vital Signs (Past 12 Hours) Vital Signs Temp Pulse Pulse Resp BP Pulse Ox O2 Del Method 12/09/22 07:38 36.9 C 99 H 26 H 158/92 H 96 Nasal Cannula 12/09/22 02:43 37.4 C 103 H 16 135/96 95 Nasal Cannula 12/08/22 23:00 100 H 12/08/22 22:45 36.8 C 103 H 16 146/87 H 97 Nasal Cannula O2 Flow Rate 12/09/22 07:38 4 12/09/22 02:43 4 12/08/22 23:00 12/08/22 22:45 4 Laboratory Results 12/09/22 12/09/22 12/08/22 Range/Units 05:56 05:56 20:27 WBC 4.63 L (4.8-10.8) K/ul RBC 4.05 L (4.70-6.10) M/uL Hgb 13.2 L (14.0-18.0) g/dl Hct 37.2 L (42.0-52.0) % MCV 91.9 (80.0-100.0) fL MCH 32.6 (25.0-34.0) pg MCHC 35.5 (32.0-36.0) g/dL RDW Std Deviation 55.1 H (36.4-46.3) fL RDW Coeff of Farzad 16.8 H (11.5-14.5) % Plt Count 138 (130-400) K/uL MPV 9.4 (9.4-12.4) fL Immature Gran % (Auto) 0.2 % Neut % (Auto) 72.5 % Lymph % (Auto) 13.4 % [place] % (Auto) 8.2 % Eos % (Auto) 4.8 % Baso % (Auto) 0.9 % Neut # (Auto) 3.36 (1.40-6.50) K/uL Lymph # (Auto) 0.62 L (1.2-3.4) K/uL [place] # (Auto) 0.38 (0.11-0.59) K/uL Eos # (Auto) 0.22 (0-0.50) K/uL Baso # (Auto) 0.04 (0-0.2) K/uL Immature Gran # (Auto) 0.01 (0.01-0.20) K/uL PT (9.0-12.0) Seconds INR (0.9-1.1) APTT (21.0-31.0) Seconds PTT Ratio Sodium 136 (136-145) mmol/L Potassium 3.8 (3.5-5.1) mmol/L Chloride 99 (98-107) mmol/L Carbon Dioxide 32 (21-32) mmol/L Anion Gap 5 (3-11) BUN 6 (6-23) mg/dl Creatinine 0.55 L (0.6-1.4) mg/dl Est Cr Clr Drug Dosing 195.0 Est GFR ( Amer) 128.5 ml/min Est GFR (Non-Af Amer) 110.9 ml/min BUN/Creatinine Ratio 10.9 (10-20) Glucose 95 (70-99(Fasting)) mg/dl Osmolality (280-300) mOsm/kg Calcium 9.1 (8.5-10.1) mg/dl Magnesium 1.5 L (1.7-2.4) mg/dl Total Bilirubin 1.3 H (0.2-1.0) mg/dl AST 27 (13-39) U/L ALT 13 (7-52) U/L Alkaline Phosphatase 151 H (34-104) U/L Total Protein 7.6 (6.0-8.3) gm/dl Albumin 3.3 L (3.4-5.0) gm/dl Globulin 4.3 H (2.5-4.0) gm/dl Albumin/Globulin Ratio 0.8 L (0.9-2) Urine Osmolality (500-800) mOsm/kg Urine Sodium 120 mmol/L Urine Potassium 11.0 mmol/L Urine Chloride 137 mmol/L SARS-CoV-2, RNA, NAAT (NEGATIVE) 12/08/22 12/08/22 12/08/22 Range/Units 20:27 18:05 13:41 WBC (4.8-10.8) K/ul RBC (4.70-6.10) M/uL Hgb (14.0-18.0) g/dl Hct (42.0-52.0) % MCV (80.0-100.0) fL MCH (25.0-34.0) pg MCHC (32.0-36.0) g/dL RDW Std Deviation (36.4-46.3) fL RDW Coeff of Farzad (11.5-14.5) % Plt Count (130-400) K/uL MPV (9.4-12.4) fL Immature Gran % (Auto) % Neut % (Auto) % Lymph % (Auto) % [place] % (Auto) % Eos % (Auto) % Baso % (Auto) % Neut # (Auto) (1.40-6.50) K/uL Lymph # (Auto) (1.2-3.4) K/uL [place] # (Auto) (0.11-0.59) K/uL Eos # (Auto) (0-0.50) K/uL Baso # (Auto) (0-0.2) K/uL Immature Gran # (Auto) (0.01-0.20) K/uL PT (9.0-12.0) Seconds INR (0.9-1.1) APTT (21.0-31.0) Seconds PTT Ratio Sodium (136-145) mmol/L Potassium (3.5-5.1) mmol/L Chloride (98-107) mmol/L Carbon Dioxide (21-32) mmol/L Anion Gap (3-11) BUN (6-23) mg/dl Creatinine (0.6-1.4) mg/dl Est Cr Clr Drug Dosing Est GFR ( Amer) ml/min Est GFR (Non-Af Amer) ml/min BUN/Creatinine Ratio (10-20) Glucose (70-99(Fasting)) mg/dl Osmolality 283 (280-300) mOsm/kg Calcium (8.5-10.1) mg/dl Magnesium (1.7-2.4) mg/dl Total Bilirubin (0.2-1.0) mg/dl AST (13-39) U/L ALT (7-52) U/L Alkaline Phosphatase (34-104) U/L Total Protein (6.0-8.3) gm/dl Albumin (3.4-5.0) gm/dl Globulin (2.5-4.0) gm/dl Albumin/Globulin Ratio (0.9-2) Urine Osmolality 266 L (500-800) mOsm/kg Urine Sodium mmol/L Urine Potassium mmol/L Urine Chloride mmol/L SARS-CoV-2, RNA, NAAT NEGATIVE (NEGATIVE) 12/08/22 12/08/22 12/08/22 Range/Units 13:41 13:41 13:41 WBC 4.23 L (4.8-10.8) K/ul RBC 4.46 L (4.70-6.10) M/uL Hgb 14.1 (14.0-18.0) g/dl Hct 40.7 L (42.0-52.0) % MCV 91.3 (80.0-100.0) fL MCH 31.6 (25.0-34.0) pg MCHC 34.6 (32.0-36.0) g/dL RDW Std Deviation 54.6 H (36.4-46.3) fL RDW Coeff of Farzad 16.8 H (11.5-14.5) % Plt Count 149 (130-400) K/uL MPV 9.6 (9.4-12.4) fL Immature Gran % (Auto) 0.0 % Neut % (Auto) 73.0 % Lymph % (Auto) 16.3 % [place] % (Auto) 6.4 % Eos % (Auto) 3.1 % Baso % (Auto) 1.2 % Neut # (Auto) 3.09 (1.40-6.50) K/uL Lymph # (Auto) 0.69 L (1.2-3.4) K/uL [place] # (Auto) 0.27 (0.11-0.59) K/uL Eos # (Auto) 0.13 (0-0.50) K/uL Baso # (Auto) 0.05 (0-0.2) K/uL Immature Gran # (Auto) 0.00 L (0.01-0.20) K/uL PT 11.3 (9.0-12.0) Seconds INR 1.1 (0.9-1.1) APTT 27.3 (21.0-31.0) Seconds PTT Ratio 1.0 Sodium 134 L (136-145) mmol/L Potassium 3.9 (3.5-5.1) mmol/L Chloride 101 (98-107) mmol/L Carbon Dioxide 27 (21-32) mmol/L Anion Gap 6 (3-11) BUN 5 L (6-23) mg/dl Creatinine 0.49 L (0.6-1.4) mg/dl Est Cr Clr Drug Dosing Not Reportable Est GFR ( Amer) 134.8 ml/min Est GFR (Non-Af Amer) 116.3 ml/min BUN/Creatinine Ratio 10.2 (10-20) Glucose 98 (70-99(Fasting)) mg/dl Osmolality (280-300) mOsm/kg Calcium 9.2 (8.5-10.1) mg/dl Magnesium 1.5 L (1.7-2.4) mg/dl Total Bilirubin 0.9 (0.2-1.0) mg/dl AST 31 (13-39) U/L ALT 14 (7-52) U/L Alkaline Phosphatase 166 H (34-104) U/L Total Protein 7.9 (6.0-8.3) gm/dl Albumin 3.4 (3.4-5.0) gm/dl Globulin 4.5 H (2.5-4.0) gm/dl Albumin/Globulin Ratio 0.8 L (0.9-2) Urine Osmolality (500-800) mOsm/kg Urine Sodium mmol/L Urine Potassium mmol/L Urine Chloride mmol/L SARS-CoV-2, RNA, NAAT (NEGATIVE) Medications Administered Current Inpatient Medications Acetaminophen (Acetaminophen 325 Mg Tab) 650 mg PO Q4H PRN PRN Reason: Pain or Fever Stop: 01/07/23 21:19 Last Admin: 12/09/22 03:03 Dose: 650 mg Al Hydrox/Mg Hydrox/Simethicone (Aluminum/Magnesium Susp 30 Ml Udc) 15 ml PO Q4H PRN PRN Reason: Dyspepsia Stop: 01/07/23 21:19 Allopurinol (Allopurinol 100 Mg Tab) 200 mg PO BID CHRISTIAN Stop: 01/07/23 21:59 Last Admin: 12/09/22 09:08 Dose: 200 mg Diclofenac Sodium (Diclofenac Sod 1% Gel 100 Gm Tube) 2 gm EXT QID PRN; Protocol PRN Reason: Knee Pain Stop: 01/07/23 21:19 Folic Acid (Folic Acid 1 Mg Tab) 1 mg PO DAILY CHRISTIAN Stop: 01/08/23 08:59 Last Admin: 12/09/22 09:08 Dose: 1 mg Furosemide (Furosemide 40 Mg/4 Ml Vial) 60 mg IV [id number] CHRISTIAN Stop: 01/08/23 08:59 Last Admin: 12/09/22 09:09 Dose: 60 mg Magnesium Hydroxide (Magnesium Hydroxide Susp 30 Ml Udc) 30 ml PO Q12H PRN PRN Reason: Constipation Stop: 01/07/23 21:19 Multivitamins (Multivitamin Tab) 1 tab PO DAILY CHRISTIAN Stop: 01/08/23 08:59 Last Admin: 12/09/22 09:08 Dose: 1 tab Ondansetron HCl (Ondansetron Inj 2 Mg/Ml 2 Ml Vial) 4 mg IV Q6H PRN PRN Reason: Nausea Stop: 01/07/23 21:19 Pantoprazole Sodium (Pantoprazole 40 Mg Tab) 40 mg PO QAM CHRISTIAN Stop: 01/08/23 09:29 Polyethylene Glycol (Polyethylene (Miralax) 17 Gm Pack) 17 gm PO DAILY PRN PRN Reason: Constipation Stop: 01/07/23 21:19 Potassium Chloride (Potassium Chloride Crtab 20 Meq Tabcr) 40 meq PO BID CHRISTIAN Stop: 01/07/23 21:59 Last Admin: 12/09/22 09:08 Dose: 40 meq Spironolactone (Spironolactone 100 Mg Tab) 100 mg PO BID CHRISTIAN Stop: 01/08/23 08:59 Last Admin: 12/09/22 09:08 Dose: 100 mg Tamsulosin HCl (Tamsulosin Hcl 0.4 Mg Cap) 0.4 mg PO DAILY CHRISTIAN Stop: 01/08/23 08:59 Last Admin: 12/09/22 09:09 Dose: 0.4 mg Thiamine HCl (Thiamine Hcl 100 Mg Tab) 100 mg PO DAILY CHRISTIAN Stop: 01/08/23 08:59 Last Admin: 12/09/22 09:09 Dose: 100 mg Zinc Sulfate (Zinc Sulfate 220 Mg Capsule) 220 mg PO DAILY CHRISTIAN Stop: 01/08/23 08:59 Last Admin: 12/09/22 09:09 Dose: 220 mg
--- NOTE | 2022-12-09 10:52 | Gastrointestinal Consultation ---
Date of Consultation December 09, 2022 Assessment & Plan (1) Anasarca: (2) Ascites due to alcoholic cirrhosis: Pt is a 62 yo male w PMHx of ETOH cirrhosis, complicated by ascites, PGH, thrombocytopenia, HTN, MRSA infection admitted for volume overload & suspected R hydrothorax. He was admitted at [facility] in 09/2022 w abd distension, ascites, s/p IR guided paracentesis on 09/29 (9L), 10/06 (3.7L). No SBP. He non compliant w meds use, citing that he's been under lots of stress recently. Also continues to use ETOH. MELD 8. - Protonix 40mg daily - US duplex hepatic veins to r/o SBP - US guided paracentesis w fluid analysis: cell ct, protein, albumin, culture. Albumin 25% 50g IV repletion ordered - Continue home diuretics: Spironolactone 100mg BID, Furosemide 80mg daily - 2g Na diet - ETOH cessation strongly advised - No APAP >2g a day Supervising Physician Co-Signing Physician Notes Attending attestation I have seen, examined this patient, and agree with the findings and above by our mid-level provider ABRAHAN Iniguez, with the following additions: Adm with anasarca, volume overload, and normal MELD No signs of confusion or bleeding Will need to have adherence to medications stressed Agree with para and will follow along History of Present Illness Reason for Consultation: Decompensated cirrhosis Requesting Physician: Dr. Juan Carlos Reyes Attending Physician: Dr. Rajendra Dominguez History of Present Illness Pt is a 62 yo male w PMHx of ETOH cirrhosis, complicated by ascites, PGH, thrombocytopenia, HTN, MRSA infection who was referred to ED by his [employer] Team Member yesterday for volume overload. HE has noticed abd and LE swelling over the last 2-3 weeks w 20lbs weight gain. He was admitted at [facility] in 09/2022 w abd distension, ascites, s/p IR guided paracentesis on 09/29 (9L), 10/06 (3.7L). No SBP. Home diuretics are Spironolactone 100mg BID and Furosemide 80mg BID. He admits that over the last few weeks he's been under a lot of stress and not taking his meds much. He also continues to drink ETOH up to 8 mixed rum/coke a week. Overnight he's received total of Furosemide 120mg IV, outpt 4.5L On eval, noted to be slightly tachycardic, afebrile, hemodynamically stable otherwise, labs wo leukocytosis, , INR 1.1, renal function normal. LFTs: Tbili 1.3, AST 27, ALT 13, Alk phose 151. MELD 8. CXR showed R pleural effusion. Last EGD 05/22/2022: hx of variceal banding, PGH, possible healed peptic ulcer disease Last colonoscopy 12/2020: benign colon polyp Allergies Allergy/AdvReac Type Severity Reaction Status Date / Time ciprofloxacin Allergy Intermediate Rash Verified 12/08/22 18:32 levofloxacin Allergy Intermediate ERYTHEMATOUS Verified 12/08/22 18:32 RASH Home Medications Medication Instructions Recorded Confirmed Type acetaminophen 325 mg tablet 650 mg PO Q6 PRN FEVER/PAIN 12/08/22 12/08/22 History (Tylenol) allopurinol 100 mg tablet 200 mg PO BID 12/08/22 12/08/22 History calamine phenolated lotion 1 applic topical BID PRN ITCHINESS 12/08/22 12/08/22 History calcium carbonate 300 mg (750 mg) 300 mg PO Q6H PRN Heartburn 12/08/22 12/08/22 History chewable tablet (Tums E-X) cholestyramine-aspartame 4 gram 4 g PO BID PRN Diarrhea 12/08/22 12/08/22 History oral powder (Prevalite) cyclobenzaprine 10 mg tablet 10 mg PO BID PRN MUSCLE SPASMS 12/08/22 12/08/22 History diclofenac sodium 1 % topical gel 2 g topical QID PRN Pain 12/08/22 12/08/22 History diphenhydramine HCl 25 mg capsule 25 mg PO Q6H PRN Itching 12/08/22 12/08/22 History (Benadryl) folic acid 1 mg tablet 1 mg PO DAILY 12/08/22 12/08/22 History furosemide 40 mg tablet (Lasix) 80 mg PO QAM 12/08/22 12/08/22 History hydrocodone 10 mg-acetaminophen 1 tab PO Q8H PRN Pain 12/08/22 12/08/22 History 325 mg tablet loratadine 10 mg tablet (Claritin) 10 mg PO DAILY PRN ITCHINESS 12/08/22 3 History multivitamin 1 tab PO DAILY 12/08/22 12/08/22 History nystatin 100,000 unit/gram topical 1 applic topical BID PRN ABD FOLDS 12/08/22 12/08/22 History cream NEEDED ondansetron HCl 4 mg tablet 4 mg PO Q6H PRN NAUSEA/VOMITING 12/08/22 12/08/22 History potassium chloride 20 mEq 40 meq PO BID 12/08/22 12/08/22 History tablet,extended release(part/cryst) spironolactone 100 mg tablet 100 mg PO BID 12/08/22 12/08/22 History tamsulosin 0.4 mg capsule 0.4 mg PO DAILY 12/08/22 12/08/22 History thiamine HCl (vitamin B1) 100 mg 100 mg PO DAILY 12/08/22 12/08/22 History tablet (Vitamin B-1) vitamin E 670 mg (1,000 unit) 670 mg PO DAILY 12/08/22 12/08/22 History capsule zinc acetate 50 mg (zinc) capsule 50 mg PO DAILY 12/08/22 12/08/22 History Patient History Medical History Alcoholic cirrhosis of liver with ascites Esophageal varices GERD (gastroesophageal reflux disease) HTN (hypertension) Portal hypertensive gastropathy Surgical History History of colonoscopy History of lumbar fusion Hx of esophagogastroduodenoscopy Stigmata of prior banding/mild portal gastropathy and body and fundus/portal duodenopathy with edema and congestion of duodenum 05/2022 Hx of tonsillectomy Family History Father Alzheimer disease Mother Pneumonia Social History Smoking Status: Never smoker Hx Alcohol Use: Yes Alcohol type: hard liquor Alcohol Intake Frequency: 4 or More x per/Week Hx Substance Use: No Preferred Language: Ukrainian Communication Ability: Effective 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 Beliefs That Will Affect Care: None Current Living Situation: Other Current Living Situation Comment: with roommate Feels Safe at Home: No Is there a partner from a previous relationship who is making you feel unsafe now?: No Any Concerns about Your Family Situation: No Would You Like to Speak to Someone About Your Situation: No Safety Concerns: Afraid for Self Assistive Devices: Cane, Glasses and Walker Review of Systems Review of Systems: All systems reviewed & are unremarkable except as noted in HPI & below Physical Exam Constitutional: WD/WN, vitals as above well groomed, cooperative and comfortable Eyes: PERRL, conjunctivae normal, anicteric sclerae ENMT: external ear and nose normal, oropharynx normal Respiratory: RLL diminished lung sounds. Accessory muscles used for breathing. Cardiovascular: RRR, no murmur, no edema Gastrointestinal (Abdomen): Very distended abd w fluid wave, non tender, BS hypoactive Skin: no rashes, warm and dry no jaundice Neurologic: Motor/Sensory: no asterixis Psychiatric: A+Ox3, euthymic affect Lymphatic: + lymphedema (bilateral LE +1 pitting edema w slight erythema on lower legs ) Results & Data ([facility]) Vital Signs (Past 12 Hours) Vital Signs Temp Pulse Pulse Resp BP Pulse Ox O2 Del Method 12/09/22 07:38 36.9 C 99 H 26 H 158/92 H 96 Nasal Cannula 12/09/22 02:43 37.4 C 103 H 16 135/96 95 Nasal Cannula 12/08/22 23:00 100 H 12/08/22 22:45 36.8 C 103 H 16 146/87 H 97 Nasal Cannula O2 Flow Rate 12/09/22 07:38 4 12/09/22 02:43 4 12/08/22 23:00 12/08/22 22:45 4
--- NOTE | 2022-12-09 11:33 | Ultrasound Report ---
US abdomen ltd ascites CLINICAL HISTORY: ascites. Evaluation for paracentesis. COMPARISON STUDY: None. FINDINGS: Real-time sonographic imaging of the abdomen was performed with insurance service representative images heather arley. There is a small of ascites seen within the abdomen most pronounced within the right upper quadr ant. This was not amenable to percutaneous drainage at this time. IMPRESSION: Small amount of ascites which was not amenable to percutaneous drainage at this time. ACT 112: Negative or not required by law. Electronically signed by: Alejo Batres M.D. 12/09/2022 11:31 AM
--- NOTE | 2022-12-09 11:59 | Ultrasound Report ---
US duplex portal hepatic veins CLINICAL HISTORY: Ascites. Assess for portal vein thrombosis. COMPARISON STUDY: None. FINDINGS: Suboptimal evaluation of the hepatic and portal veins due to the patient's body habitus. Do ppler waveforms of the visualized portal veins demonstrate bidirectional flow. No definite evidence f or portal vein thrombosis. The mid and left hepatic veins appear patent. The right hepatic vein was n ot visualized. Cirrhotic liver with a small amount of ascites. IMPRESSION: 1. No definite evidence for portal vein thrombosis. 2. Bidirectional flow within the visualized portal veins likely due to the patient's underlying cirrh osis. 3. The visualized hepatic veins appear patent. ACT 112: Negative or not required by law. Electronically signed by: Alejo Batres M.D. 12/09/2022 11:58 AM
[2022-12-09] MEDS: PANTOprazole 40 MG TAB PO SCH (12:01)
[2022-12-09 18:03] LABS: BUN Creatinine Ratio 11.1 (10-20); Creatinine Clr Calc Pharmacy 132.4 ml/min; Est GFR (African American) 109.6 ml/min; Est GFR (Non-African American) 94.6 ml/min; Magnesium 1.3 mg/dl (1.7-2.4); Phosphorus 2.8 mg/dl (2.5-4.9); Potassium 3.6 mmol/L (3.5-5.1)
[2022-12-09] MEDS: guaiFENesin 600 MG TABCR PO SCH ×2 (18:39→21:13)
[2022-12-09] MEDS: ALUMINUM/MAGNESIUM SUSP 30 ML UDC PO PRN (21:17)
[2022-12-10 07:00] LABS: Hematocrit (blood only) 35.9 % (42.0-52.0); Hemoglobin 12.9 g/dl (14.0-18.0); Mean Corpuscular Hemoglobin 32.8 pg (25.0-34.0); Mean Corpuscular Hgb Conc 35.9 g/dL (32.0-36.0); Mean Corpuscular Volume 91.3 fL (80.0-100.0); Mean Platelet Volume 9.9 fL (9.4-12.4); Platelet Count 120 K/uL (130-400); RDW Coefficient of Variation 16.4 % (11.5-14.5); RDW Standard Deviation 53.6 fL (36.4-46.3); Red Blood Count 3.93 M/uL (4.70-6.10); White Blood Count 4.13 K/ul (4.8-10.8)
[2022-12-10 07:12] LABS: Albumin Globulin Ratio 0.8 (0.9-2); Albumin Level 3.3 gm/dl (3.4-5.0); BUN Creatinine Ratio 16.9 (10-20); Bilirubin,Total 1.3 mg/dl (0.2-1.0); Calcium 9.2 mg/dl (8.5-10.1); Creatinine Clr Calc Pharmacy 161.7 ml/min; Est GFR (Non-African American) 103.5 ml/min; Globulin 4.1 gm/dl (2.5-4.0); Magnesium 1.3 mg/dl (1.7-2.4); Phosphorus 3.4 mg/dl (2.5-4.9); Potassium 3.6 mmol/L (3.5-5.1); Total Protein 7.4 gm/dl (6.0-8.3)
[2022-12-10] MEDS ORDERED: MAGNESIUM SULFATE / D5W 1 GM/100 ML BAG IV ONE (07:47)
--- NOTE | 2022-12-10 07:48 | Hospitalist Progress Note ---
Date of Service December 10, 2022 Assessment & Plan (1) Decompensation of cirrhosis of liver: (2) Anasarca: (3) Ascites due to alcoholic cirrhosis: (4) Portal hypertensive gastropathy: (5) Alcoholic cirrhosis of liver with ascites: Plan This is a 62-year-old male who has significant past medical history of alcoholic cirrhosis of liver with ascites, portal hypertensive gastropathy, MARCO, hypertension, thrombocytopenia, history of MRSA who presents to ED at referral of cardiology in setting of decompensated cirrhosis. Decompensated cirrhosis Anasarca Alcoholic cirrhosis of liver with ascites Portal hypertensive gastropathy Admitted to PCU MELD 8 Gastroenterology consulted Diuresis with IV Lasix 60 mg twice daily Continue Aldactone 100 mg twice daily Strict I's and O's, daily weights Fluid restrict 1800 mL Perform diagnostic and therapeutic paracentesis with cell count, protein, LDH albumin Patient diuresed quite a bit with IV Lasix and spironolactone. He was taken for paracentesis yesterday (12/09), however despite significant abdominal distention, only small ascites identified on ultrasound We will continue with diuresis for now, and we will continue to closely monitor 12/10 Continues to be diuresing well, however still continues to use supplemental oxygen Repeat chest x-ray, shows right pleural effusion Pulmonary medicine consulted for possible thoracentesis Dr. Lewis present also at the bedside for evaluation Acute resp. failure w/ hypoxia - currently still on 4 L of suppl. O2 - secondary to above - cont. diuresis - wean off O2 as available Hypomagnesemia replete and monitor Alcohol abuse pt with long standing hx of alcohol use do not feel pt requires AWSS protocol at this time continue thiamine and folic acid Dvt ppx: SQ heparin Dispo: PCU, CM consult FULL CODE PCP: Cathy Peguero Admission and Anticipated Discharge Date Admission Date: December 08, 2022 Subjective Pt seen in follow up of resp. failure w/ hypoxia, d/t fluid overload, decompensated cirrhosis Currently patient is sitting up in chair, in no acute distress, continues to be on supplemental oxygen Reports breathing is easier He has diuresed quite a bit since his admission He was taken for paracentesis yesterday, however despite significant abdominal distention, no significant ascites identified on ultrasound No fevers chills chest pain. Mild abdominal discomfort. Review of Systems Review of Systems: All systems reviewed & are unremarkable except as noted in Subjective Physical Exam Physical Exam: General: Obese M, in no acute distress, on suppl. O2 4 L via NC Eyes: PERRL, EOMI. conjunctivae normal, anicteric sclerae ENMT: External ear and nose normal, oropharynx normal Respiratory: Normal respiratory effort, no respiratory distress,diminished breath sounds at lung bases (R>L) Cardiovascular: RRR, S1 S2 Gastrointestinal (Abdomen): Abdomen is markedly distended, non-tender to palpation, normal bowel sounds Musculoskeletal: + LE edema b/l Neuro/Psych: Alert and oriented x 3, speech fluent, no facial asym metry, moves extremities Results & Data Results & Data ([facility]) Vital Signs (Past 12 Hours) Vital Signs Temp Pulse Pulse Resp BP Pulse Ox O2 Del Method 12/10/22 07:35 36.9 C 108 H 16 118/67 98 Nasal Cannula 12/10/22 02:31 36.8 C 100 H 20 124/74 96 Nasal Cannula 12/09/22 22:55 101 H 12/09/22 22:33 37.3 C 113 H 18 115/69 96 Nasal Cannula O2 Flow Rate 12/10/22 07:35 4 12/10/22 02:31 4 12/09/22 22:55 12/09/22 22:33 4 Laboratory Results 12/10/22 12/10/22 12/09/22 Range/Units 06:22 06:22 17:31 WBC 4.13 L (4.8-10.8) K/ul RBC 3.93 L (4.70-6.10) M/uL Hgb 12.9 L (14.0-18.0) g/dl Hct 35.9 L (42.0-52.0) % MCV 91.3 (80.0-100.0) fL MCH 32.8 (25.0-34.0) pg MCHC 35.9 (32.0-36.0) g/dL RDW Std Deviation 53.6 H (36.4-46.3) fL RDW Coeff of Afrzad 16.4 H (11.5-14.5) % Plt Count 120 L (130-400) K/uL MPV 9.9 (9.4-12.4) fL Sodium 135 L 134 L (136-145) mmol/L Potassium 3.6 3.6 (3.5-5.1) mmol/L Chloride 95 L 96 L (98-107) mmol/L Carbon Dioxide 34 H 34 H (21-32) mmol/L Anion Gap 6 4 (3-11) BUN 11 9 (6-23) mg/dl Creatinine 0.65 0.81 (0.6-1.4) mg/dl Est Cr Clr Drug Dosing 161.7 132.4 ml/min Est GFR ( Amer) 120.0 109.6 ml/min Est GFR (Non-Af Amer) 103.5 94.6 ml/min BUN/Creatinine Ratio 16.9 11.1 (10-20) Glucose 96 130 H (70-99(Fasting)) mg/dl Calcium 9.2 9.0 (8.5-10.1) mg/dl Phosphorus 3.4 2.8 (2.5-4.9) mg/dl Magnesium 1.3 L 1.3 L (1.7-2.4) mg/dl Total Bilirubin 1.3 H (0.2-1.0) mg/dl AST 24 (13-39) U/L ALT 12 (7-52) U/L Alkaline Phosphatase 153 H (34-104) U/L Total Protein 7.4 (6.0-8.3) gm/dl Albumin 3.3 L (3.4-5.0) gm/dl Globulin 4.1 H (2.5-4.0) gm/dl Albumin/Globulin Ratio 0.8 L (0.9-2) Medications Administered Current Inpatient Medications Acetaminophen (Acetaminophen 325 Mg Tab) 650 mg PO Q4H PRN PRN Reason: Pain or Fever Stop: 01/07/23 21:19 Last Admin: 12/09/22 17:34 Dose: 650 mg Al Hydrox/Mg Hydrox/Simethicone (Aluminum/Magnesium Susp 30 Ml Udc) 15 ml PO Q4H PRN PRN Reason: Dyspepsia Stop: 01/07/23 21:19 Last Admin: 12/09/22 21:17 Dose: 15 ml Allopurinol (Allopurinol 100 Mg Tab) 200 mg PO BID CHRISTIAN Stop: 01/07/23 21:59 Last Admin: 12/09/22 21:13 Dose: 200 mg Diclofenac Sodium (Diclofenac Sod 1% Gel 100 Gm Tube) 2 gm EXT QID PRN; Protocol PRN Reason: Knee Pain Stop: 01/07/23 21:19 Folic Acid (Folic Acid 1 Mg Tab) 1 mg PO DAILY CHRISTIAN Stop: 01/08/23 08:59 Last Admin: 12/09/22 09:08 Dose: 1 mg Furosemide (Furosemide 40 Mg/4 Ml Vial) 60 mg IV BID17 CHRISTIAN Stop: 01/08/23 08:59 Last Admin: 12/09/22 17:34 Dose: 60 mg Guaifenesin (Guaifenesin 600 Mg Tabcr) 600 mg PO Q12 CHRISTIAN Stop: 01/08/23 17:24 Last Admin: 12/09/22 21:13 Dose: 600 mg Magnesium Sulfate/Dextrose (Magnesium Sulfate / D5w) 1 gm in 100 mls @ 50 mls/hr IV ONE ONE Stop: 12/10/22 09:46 Magnesium Hydroxide (Magnesium Hydroxide Susp 30 Ml Udc) 30 ml PO Q12H PRN PRN Reason: Constipation Stop: 01/07/23 21:19 Magnesium Oxide (Magnesium Oxide 400 Mg Tab) 400 mg PO BID CHRISTIAN Stop: 01/09/23 08:59 Multivitamins (Multivitamin Tab) 1 tab PO DAILY CHRISTIAN Stop: 01/08/23 08:59 Last Admin: 12/09/22 09:08 Dose: 1 tab Ondansetron HCl (Ondansetron Inj 2 Mg/Ml 2 Ml Vial) 4 mg IV Q6H PRN PRN Reason: Nausea Stop: 01/07/23 21:19 Pantoprazole Sodium (Pantoprazole 40 Mg Tab) 40 mg PO QAM CHRISTIAN Stop: 01/08/23 09:29 Last Admin: 12/09/22 12:01 Dose: 40 mg Polyethylene Glycol (Polyethylene (Miralax) 17 Gm Pack) 17 gm PO DAILY PRN PRN Reason: Constipation Stop: 01/07/23 21:19 Potassium Chloride (Potassium Chloride Crtab 20 Meq Tabcr) 40 meq PO BID CHRISTIAN Stop: 01/07/23 21:59 Last Admin: 12/09/22 21:12 Dose: 40 meq Spironolactone (Spironolactone 100 Mg Tab) 100 mg PO BID CHRISTIAN Stop: 01/08/23 08:59 Last Admin: 12/09/22 21:13 Dose: 100 mg Tamsulosin HCl (Tamsulosin Hcl 0.4 Mg Cap) 0.4 mg PO DAILY CHRSITIAN Stop: 01/08/23 08:59 Last Admin: 12/09/22 09:09 Dose: 0.4 mg Thiamine HCl (Thiamine Hcl 100 Mg Tab) 100 mg PO DAILY CHRISTIAN Stop: 01/08/23 08:59 Last Admin: 12/09/22 09:09 Dose: 100 mg Zinc Sulfate (Zinc Sulfate 220 Mg Capsule) 220 mg PO DAILY CHRISTIAN Stop: 01/08/23 08:59 Last Admin: 12/09/22 09:09 Dose: 220 mg
--- NOTE | 2022-12-10 08:47 | Gastroenterology Progress Note ---
Date of Service December 10, 2022 Assessment & Plan (1) Anasarca: (2) Ascites due to alcoholic cirrhosis: Plan: Pt is a 62 yo male w PMHx of ETOH cirrhosis, complicated by ascites, PGH, thrombocytopenia, HTN, MRSA infection admitted for volume overload, anasarca, suspected R hydrothorax. He was admitted at [facility] in 09/2022 w abd distension, ascites, s/p IR guided paracentesis on 09/29 (9L), 10/06 (3.7L). No SBP. He non compliant w meds use, citing that he's been under lots of stress recently. Also continues to use ETOH. MELD 8. Insufficient ascites for paracentesis. 4.2L output yesterday. Mild tachycardia but otherwise hemodynamically stable. No GI bleeding symptoms. - Repeat CXR to re-eval R lung pleural effusion - Protonix 40mg daily - US duplex hepatic veins to r/o SBP -> (-) - Continue diuretics: Spironolactone 100mg BID, Furosemide 60mg BID; monitor renal function and electrolytes closely - 2g Na diet - ETOH cessation strongly advised - No APAP >2g a day Admission and Anticipated Discharge Date Admission Date: December 08, 2022 Supervising Physician Co-Signing Physician Notes Attending attestation I have seen, examined this patient, and agree with the findings and above by our mid-level provider ABRAHAN Iniguez, with the following additions: Adm with anasarca, volume overload, and normal MELD No signs of confusion or bleeding Will need to have adherence to medications stressed Diuresing well Will sign off with outpt follow up with Dr. Fields Subjective Pt did not undergo paracentesis yesterday as found to have insufficient ascites to tap He reports dyspnea is improved, able to tolerate periods without O2 per NC when sitting up. Denies CP, abd pain, n/v. Ate solid breakfast. 1 BM yesterday, formed, no rectal bleeding or dark tarry stools. Review of Systems Review of Systems: All systems reviewed & are unremarkable except as noted in HPI & below Physical Exam Constitutional: WD/WN, vitals as above well groomed, cooperative and comfortable Eyes: PERRL, conjunctivae normal, anicteric sclerae ENMT: external ear and nose normal, oropharynx normal Respiratory: RLL diminished sounds, CTA other wynne. Cardiovascular: RRR, no murmur, no edema Gastrointestinal (Abdomen): Improved distension compared to yesterday. BS +, non tender Skin: no rashes, warm and dry no jaundice Neurologic: Motor/Sensory: no asterixis Psychiatric: A+Ox3, euthymic affect Lymphatic: + lymphedema (bilateral LE w generalized edema) Results & Data ([facility]) Vital Signs (Past 12 Hours) Vital Signs Temp Pulse Pulse Resp BP Pulse Ox O2 Del Method 12/10/22 07:35 36.9 C 108 H 16 118/67 98 Nasal Cannula 12/10/22 02:31 36.8 C 100 H 20 124/74 96 Nasal Cannula 12/09/22 22:55 101 H 12/09/22 22:33 37.3 C 113 H 18 115/69 96 Nasal Cannula O2 Flow Rate 12/10/22 07:35 4 12/10/22 02:31 4 12/09/22 22:55 12/09/22 22:33 4
[2022-12-10] MEDS: MAGNESIUM OXIDE 400 MG TAB PO SCH ×2 (09:02→20:24)
[2022-12-10] MEDS: MULTIVITAMIN TAB PO SCH (09:03)
[2022-12-10] MEDS: FOLIC ACID 1 MG TAB PO SCH (09:03)
[2022-12-10] MEDS: TAMSULOSIN HCL 0.4 MG CAP PO SCH (09:03)
[2022-12-10] MEDS: ZINC SULFATE 220 MG CAPSULE PO SCH (09:03)
[2022-12-10] MEDS: allopurinoL 100 MG TAB PO SCH ×2 (09:03→20:24)
[2022-12-10] MEDS: SPIRONOLACTONE 100 MG TAB PO SCH ×2 (09:03→20:23)
[2022-12-10] MEDS: THIAMINE HCL 100 MG TAB PO SCH (09:03)
[2022-12-10] MEDS: POTASSIUM CHLORIDE CRTAB 20 MEQ TABCR PO SCH ×2 (09:03→20:19)
[2022-12-10] MEDS: guaiFENesin 600 MG TABCR PO SCH ×2 (09:03→20:24)
[2022-12-10] MEDS: PANTOprazole 40 MG TAB PO SCH (09:04)
[2022-12-10] MEDS: FUROSEMIDE 40 MG/4 ML VIAL IV SCH ×2 (09:04→16:40)
--- NOTE | 2022-12-10 13:49 | Pulmonary Consultation ---
Date of Consultation December 10, 2022 Assessment & Plan (1) Hydrothorax: (2) Dyspnea: (3) Hypoxemia: Plan Diagnostic and therapeutic thoracentesis to be performed at bedside. Pleural effusion likely secondary to hydrothorax. Continue with diuresis. Recommend outpatient TIPS evaluation. History of Present Illness Reason for Consultation: Right hydrothorax Attending Physician: Juan Carlos Reyes MD History of Present Illness 62-year-old male with history of alcoholic cirrhosis, MARCO and hypertension who presented to the hospital 12/08/2021 due to increasing shortness of breath. Chest x-ray revealed a moderate to large sized hydrothorax. Patient had an ultrasound of his abdomen for consideration of paracentesis yesterday, but it was deemed that there was not enough fluid for paracentesis by radiology. Pulmonary is consulted today for thoracentesis. Patient notes that he has not been as compliant with his Lasix due to frequent traveling. He has noticed increased edema in his lower extremities and abdomen. He also noticed increased shortness of breath. He denies any prior thoracentesis. He notes he had a paracentesis in September. Labs significant for mild leukopenia and mild anemia. Platelet count is down slightly to 120,000. INR 1.1. PTT 27.3. Allergies Allergy/AdvReac Type Severity Reaction Status Date / Time ciprofloxacin Allergy Intermediate Rash Verified 12/08/22 18:32 levofloxacin Allergy Intermediate ERYTHEMATOUS Verified 12/08/22 18:32 RASH Home Medications Medication Instructions Recorded Confirmed Type acetaminophen 325 mg tablet 650 mg PO Q6 PRN FEVER/PAIN 12/08/22 12/08/22 History (Tylenol) allopurinol 100 mg tablet 200 mg PO BID 12/08/22 12/08/22 History calamine phenolated lotion 1 applic topical BID PRN ITCHINESS 12/08/22 12/08/22 History calcium carbonate 300 mg (750 mg) 300 mg PO Q6H PRN Heartburn 12/08/22 12/08/22 History chewable tablet (Tums E-X) cholestyramine-aspartame 4 gram 4 g PO BID PRN Diarrhea 12/08/22 12/08/22 History oral powder (Prevalite) cyclobenzaprine 10 mg tablet 10 mg PO BID PRN MUSCLE SPASMS 12/08/22 12/08/22 History diclofenac sodium 1 % topical gel 2 g topical QID PRN Pain 12/08/22 12/08/22 History diphenhydramine HCl 25 mg capsule 25 mg PO Q6H PRN Itching 12/08/22 12/08/22 History (Benadryl) folic acid 1 mg tablet 1 mg PO DAILY 12/08/22 12/08/22 History furosemide 40 mg tablet (Lasix) 80 mg PO QAM 12/08/22 12/08/22 History hydrocodone 10 mg-acetaminophen 1 tab PO Q8H PRN Pain 12/08/22 12/08/22 History 325 mg tablet loratadine 10 mg tablet (Claritin) 10 mg PO DAILY PRN ITCHINESS 12/08/22 12/08/22 History multivitamin 1 tab PO DAILY 12/08/22 12/08/22 History nystatin 100,000 unit/gram topical 1 applic topical BID PRN ABD FOLDS 12/08/22 12/08/22 History cream NEEDED ondansetron HCl 4 mg tablet 4 mg PO Q6H PRN NAUSEA/VOMITING 12/08/22 12/08/22 History potassium chloride 20 mEq 40 meq PO BID 12/08/22 12/08/22 History tablet,extended release(part/cryst) spironolactone 100 mg tablet 100 mg PO BID 12/08/22 12/08/22 History tamsulosin 0.4 mg capsule 0.4 mg PO DAILY 12/08/22 12/08/22 History thiamine HCl (vitamin B1) 100 mg 100 mg PO DAILY 12/08/22 12/08/22 History tablet (Vitamin B-1) vitamin E 670 mg (1,000 unit) 670 mg PO DAILY 12/08/22 12/08/22 History capsule zinc acetate 50 mg (zinc) capsule 50 mg PO DAILY 12/08/22 12/08/22 History Patient History Medical History (Updated 12/10/22 @ 13:47 by Shiv Lewis MD) Alcoholic cirrhosis of liver with ascites Dyspnea Esophageal varices GERD (gastroesophageal reflux disease) HTN (hypertension) Hydrothorax Hypoxemia Portal hypertensive gastropathy Surgical History History of colonoscopy History of lumbar fusion Hx of esophagogastroduodenoscopy Stigmata of prior banding/mild portal gastropathy and body and fundus/portal duodenopathy with edema and congestion of duodenum 05/2022 Hx of tonsillectomy Family History Father Alzheimer disease Mother Pneumonia Social History Smoking Status: Never smoker Hx Alcohol Use: Yes Alcohol type: hard liquor Alcohol Intake Frequency: 4 or More x per/Week Hx Substance Use: No Preferred Language: Kiswahili Communication Ability: Effective Glue Jointer Feeder Required: No Beliefs That Will Affect Care: None Current Living Situation: Other Current Living Situation Comment: with roommate Feels Safe at Home: No Is there a partner from a previous relationship who is making you feel unsafe now?: No Any Concerns about Your Family Situation: No Would You Like to Speak to Someone About Your Situation: No Safety Concerns: Afraid for Self Assistive Devices: Cane and Walker Review of Systems Review of Systems: All systems reviewed & are unremarkable except as noted in HPI & below Physical Exam Physical Exam: Constitutional: Patient appears to be of their stated age. Patient is in no apparent distress. Patient is well-developed. Eyes: Pupils are equal round and reactive to light. Conjunctivae are normal. Anicteric sclera. Ears nose, mouth and throat: Mallampati class 2. Normal posterior oropharynx. Uvula is midline. Neck: Trachea is midline. Visual inspection is normal. Respiratory: Diminished at the right lung base with crackles. No tachypnea. Cardiovascular: Regular rate and rhythm. No murmurs. 4+ pitting edema in lower noted in the lower extremities. Gastrointestinal: Distended abdomen. Positive fluid wave. Musculoskeletal: No cyanosis. Patient is able to move all extremities. Strength is 5 out of 5 in the upper and lower extremities. Skin: No rashes, warm dry and intact. Neurologic: No obvious focal neurological deficits seen. Psychiatric: Alert and oriented x3 with a euthymic affect. Results & Data Results & Data ([facility]) Vital Signs (Past 12 Hours) Vital Signs Temp Pulse Pulse Resp BP Pulse Ox O2 Del Method 12/10/22 12:01 101 H 12/10/22 12:01 Nasal Cannula 12/10/22 11:49 36.5 C 112 H 19 126/80 97 Nasal Cannula 12/10/22 07:35 36.9 C 108 H 16 118/67 98 Nasal Cannula 12/10/22 02:31 36.8 C 100 H 20 124/74 96 Nasal Cannula O2 Flow Rate 12/10/22 12:01 12/10/22 12:01 4 12/10/22 11:49 4 12/10/22 07:35 4 12/10/22 02:31 4 PG Care Time/CCT Total # of Minutes Spent Total Time Spent with Patient: Total time spent is greater than 50% in coordination of care (as documented) at patient's floor/unit and/or counseling patient: Coding Level of Care Code INP/OBS CONSULT LVL 4, 60 MIN Diagnoses Hydrothorax J94.8 Dyspnea R06.00 Hypoxemia R09.02
--- NOTE | 2022-12-10 14:24 | XRay Report ---
XR chest 2V PA/lateral CLINICAL HISTORY: re-eval R pleural effusion COMPARISON STUDY: Chest radiograph December 08, 2022. FINDINGS: A large right pleural effusion has increased in size since chest radiograph of December 08, 2022. Associated airspace opacity is present. No left pleural effusion is present. There is no evide nce for pulmonary edema. Cardiomediastinal silhouette is stable. IMPRESSION: Increase in size of a large right pleural effusion. ACT 112: Negative or not required by law. Electronically signed by: Osiel Ash M.D. 12/10/2022 2:23 PM
--- NOTE | 2022-12-10 14:50 | Procedure Note ---
Procedure Note Date of Service December 10, 2022 Note Procedure: Diagnostic and therapeutic ultrasound-guided catheter thoracentesis Eyeglass Fitter: Dr. Shiv Lewis Indication: Pleural effusion Consent: Signed by patient and verified with timeout prior to procedure Anesthesia: 8 mL's of 1% lidocaine without epinephrine given locally Procedure: Consent was verified and timeout performed. Appropriate imaging studies were reviewed prior to the procedure. Patient was placed in a seated and limited thoracic ultrasound was performed of the right chest. See separate imaging. The site appropriate for thoracentesis was selected. The skin was prepped and draped in normal sterile fashion. Lidocaine was used for local analgesia. Fluid was aspirated via the finder needle. A small skin flavio was made with the scalpel and the catheter over the needle apparatus was advanced over the rib into the pleural space. 2 L of fluid was removed from pleural space. Post procedure chest x-ray was ordered. Fluid was sent for LDH, total protein, cell count, glucose, pH, cytology, gram stain and culture and fungal cultures. The patient tolerated the procedure well without obvious complication. Coding CPT Codes Pulmonary/Thoracic - Pulmonary and Thoracic: 27793 Thoracentesis w imaging ([id number]) [facility] Procedure Codes (Charges) Pulmonary/Thoracic Procedure 1: Pulmonary and Thoracic: 74705 Thoracentesis w imaging
[2022-12-10] MEDS ORDERED: ALBUMIN 25% 12.5 GM/50 ML VIAL IV ONE (15:32)
--- NOTE | 2022-12-10 16:07 | XRay Report ---
XR chest 1V portable CLINICAL HISTORY: s/p small bore chest tube TECHNIQUE: Single frontal radiograph of the chest was obtained. Comparison: Comparison is made to chest radiograph 12/10/2022 FINDINGS: No lines and tubes are seen. Cardiomegaly is noted. There is a large right pleural effusion. IMPRESSION: Large right pleural effusion. This appears minimally decreased from prior exam. No pneumothorax is se en. ACT 112: Negative or not required by law. Electronically signed by: Michael Jacobsen M.D. 12/10/2022 4:05 PM
[2022-12-10 16:08] LABS: Amylase Pleural Fluid < 10 U/L
[2022-12-10 16:14] LABS: Glucose Pleural Fluid 124 mg/dl; LDH Pleural Fluid 71 U/L; Total Protein Pleural Fluid < 3.0 gm/dl
[2022-12-10 16:50] LABS: Appearance Pleural Fluid Slightly Hazy; Color Pleural Fluid Pale Yellow; Lymphocytes, Fluid 30 %; Mono,Macrophage,Mesothelial 61 %; Neutrophils, Fluid 9 %; RBC Pleural Fluid Auto < 2000 /uL; Source Pleural Fluid Right Lung; WBC Pleural Fluid Auto 491 /uL
[2022-12-10] MEDS: ALUMINUM/MAGNESIUM SUSP 30 ML UDC PO PRN (20:19)
[2022-12-10] MEDS: MAGNESIUM SULFATE / D5W 1 GM/100 ML BAG IV SCH ×2 (20:19→22:16)
[2022-12-10] MEDS: ACETAMINOPHEN 325 MG TAB PO PRN (22:16)
[2022-12-10] MEDS ORDERED: SODIUM CHLORIDE 0.65% NA SOLN 45 ML (OCEAN) PRN (22:46)
[2022-12-10] MEDS ORDERED: ALBUMIN 25% 100 mL 25 GM/100 ML VIAL IV ONE (22:49)
[2022-12-11 07:07] LABS: Hematocrit (blood only) 34.6 % (42.0-52.0); Hemoglobin 12.3 g/dl (14.0-18.0); Mean Corpuscular Hemoglobin 32.4 pg (25.0-34.0); Mean Corpuscular Hgb Conc 35.5 g/dL (32.0-36.0); Mean Corpuscular Volume 91.1 fL (80.0-100.0); Platelet Count 123 K/uL (130-400); RDW Coefficient of Variation 16.4 % (11.5-14.5); RDW Standard Deviation 53.3 fL (36.4-46.3); White Blood Count 3.54 K/ul (4.8-10.8)
[2022-12-11 07:08] LABS: BUN Creatinine Ratio 18.1 (10-20); Calcium 8.8 mg/dl (8.5-10.1); Creatinine Clr Calc Pharmacy 143.4 ml/min; Est GFR (African American) 115.1 ml/min; Est GFR (Non-African American) 99.3 ml/min; Magnesium 1.7 mg/dl (1.7-2.4); Phosphorus 2.9 mg/dl (2.5-4.9); Potassium 3.6 mmol/L (3.5-5.1)
[2022-12-11] MEDS ORDERED: MAGNESIUM SULFATE / D5W 1 GM/100 ML BAG IV ONE (08:18)
--- NOTE | 2022-12-11 08:19 | Hospitalist Progress Note ---
Date of Service December 11, 2022 Assessment & Plan (1) Decompensation of cirrhosis of liver: (2) Anasarca: (3) Ascites due to alcoholic cirrhosis: (4) Portal hypertensive gastropathy: (5) Alcoholic cirrhosis of liver with ascites: Plan This is a 62-year-old male who has significant past medical history of alcoholic cirrhosis of liver with ascites, portal hypertensive gastropathy, MARCO, hypertension, thrombocytopenia, history of MRSA who presents to ED at referral of cardiology in setting of decompensated cirrhosis. Decompensated cirrhosis Anasarca Alcoholic cirrhosis of liver with ascites Portal hypertensive gastropathy Admitted to PCU MELD 8 Gastroenterology consulted Diuresis with IV Lasix 60 mg twice daily Continue Aldactone 100 mg twice daily Strict I's and O's, daily weights Fluid restrict 1800 mL Perform diagnostic and therapeutic paracentesis with cell count, protein, LDH albumin Patient diuresed quite a bit with IV Lasix and spironolactone. He was taken for paracentesis on (12/09), however despite significant abdominal distention, only small ascites identified on ultrasound Continued with diuresis and closely monitored Continued to be diuresing well, however still continues to use supplemental oxygen Repeated chest x-ray, shows right pleural effusion (12/10) Pulmonary medicine consulted and pt underwent thoracentesis, 2L of fluid removed , transudate (12/10) Consider outpt eval for TIPS procedure, may need 2 step study prior to DC Cultures and cytology - pending Acute resp. failure w/ hypoxia - currently still on 2 L of suppl. O2 vs. RA - secondary to above - cont. diuresis - wean off O2 as available Hypomagnesemia replete and monitor Alcohol abuse pt with long standing hx of alcohol use do not feel pt requires AWSS protocol at this time continue thiamine and folic acid Dvt ppx: SQ heparin Dispo: PCU, CM consult FULL CODE PCP: Cathy Peguero Admission and Anticipated Discharge Date Admission Date: December 08, 2022 Subjective Pt seen in follow up of resp. failure w/ hypoxia, d/t fluid overload, decompensated cirrhosis Currently patient is sitting up in chair, in no acute distress, continues to be on supplemental oxygen Reports breathing is easier He has diuresed quite a bit since his admission He was taken for paracentesis, however despite significant abdominal distention, no significant ascites identified on ultrasound Pt underwent right thoracentesis, with 2 L of fluid removed yesterday No fevers chills or chest pain. Minimal abdominal discomfort. Review of Systems Review of Systems: All systems reviewed & are unremarkable except as noted in Subjective Physical Exam Physical Exam: General: Obese M, in no acute distress, on suppl. O2 2 L vs RA Eyes: PERRL, EOMI. conjunctivae normal, anicteric sclerae ENMT: External ear and nose normal, oropharynx normal Respiratory: Normal respiratory effort, no respiratory distress,diminished breath sounds at lung bases (R>L), improved Cardiovascular: RRR, S1 S2 Gastrointestinal (Abdomen): Abdomen is markedly distended, non-tender to palpation, normal bowel sounds Musculoskeletal: + LE edema b/l (improved) Neuro/Psych: Alert and oriented x 3, speech fluent, no facial asymmetry, moves extremities Results & Data Results & Data ([facility]) Vital Signs (Past 12 Hours) Vital Signs Temp Pulse Pulse Resp BP Pulse Ox O2 Del Method 12/11/22 07:30 36.9 C 98 H 20 120/71 93 Nasal Cannula 12/11/22 03:40 36.9 C 100 H 21 124/83 95 Nasal Cannula 12/10/22 23:25 105 H 12/10/22 22:13 37 C 107 H 18 108/73 94 Nasal Cannula 12/10/22 20:30 Nasal Cannula O2 Flow Rate 12/11/22 07:30 2 12/11/22 03:40 2 12/10/22 23:25 12/10/22 22:13 2 12/10/22 20:30 3 Laboratory Results 12/11/22 12/11/22 12/10/22 Range/Units 06:25 06:25 13:00 WBC 3.54 L (4.8-10.8) K/ul RBC 3.80 L (4.70-6.10) M/uL Hgb 12.3 L (14.0-18.0) g/dl Hct 34.6 L (42.0-52.0) % MCV 91.1 (80.0-100.0) fL MCH 32.4 (25.0-34.0) pg MCHC 35.5 (32.0-36.0) g/dL RDW Std Deviation 53.3 H (36.4-46.3) fL RDW Coeff of Farzad 16.4 H (11.5-14.5) % Plt Count 123 L (130-400) K/uL MPV 10.0 (9.4-12.4) fL Sodium 133 L (136-145) mmol/L Potassium 3.6 (3.5-5.1) mmol/L Chloride 92 L (98-107) mmol/L Carbon Dioxide 36 H (21-32) mmol/L Anion Gap 5 (3-11) BUN 13 (6-23) mg/dl Creatinine 0.72 (0.6-1.4) mg/dl Est Cr Clr Drug Dosing 143.4 ml/min Est GFR ( Amer) 115.1 ml/min Est GFR (Non-Af Amer) 99.3 ml/min BUN/Creatinine Ratio 18.1 (10-20) Glucose 100 H (70-99(Fasting)) mg/dl Calcium 8.8 (8.5-10.1) mg/dl Phosphorus 2.9 (2.5-4.9) mg/dl Magnesium 1.7 (1.7-2.4) mg/dl Fluid Neutrophils % 9 % Fluid Lymphocytes % 30 % Fluid Meso/Macro/[place] % 61 % Fluid Slide Review Pending Fluid Comment Peritoneal LDH Peritoneal Glucose Peritoneal Amylase Pleural Fluid Source Right Lung Pleural Color Pale Yellow Pleural Appearance Slightly Hazy Pleural pH (7.3-7.4) Pleural WBC (Auto) 491 /uL Pleural RBC (Auto) < 2000 /uL Pleural Total Protein gm/dl Pleural LDH U/L Pleural Glucose mg/dl Pleural Amylase U/L Pleural Cholesterol 12/10/22 12/10/22 12/10/22 Range/Units 13:00 13:00 13:00 WBC (4.8-10.8) K/ul RBC (4.70-6.10) M/uL Hgb (14.0-18.0) g/dl Hct (42.0-52.0) % MCV (80.0-100.0) fL MCH (25.0-34.0) pg MCHC (32.0-36.0) g/dL RDW Std Deviation (36.4-46.3) fL RDW Coeff of Farzad (11.5-14.5) % Plt Count (130-400) K/uL MPV (9.4-12.4) fL Sodium (136-145) mmol/L Potassium (3.5-5.1) mmol/L Chloride (98-107) mmol/L Carbon Dioxide (21-32) mmol/L Anion Gap (3-11) BUN (6-23) mg/dl Creatinine (0.6-1.4) mg/dl Est Cr Clr Drug Dosing ml/min Est GFR ( Amer) ml/min Est GFR (Non-Af Amer) ml/min BUN/Creatinine Ratio (10-20) Glucose (70-99(Fasting)) mg/dl Calcium (8.5-10.1) mg/dl Phosphorus (2.5-4.9) mg/dl Magnesium (1.7-2.4) mg/dl Fluid Neutrophils % % Fluid Lymphocytes % % Fluid Meso/Macro/[place] % % Fluid Slide Review Fluid Comment Peritoneal LDH Peritoneal Glucose Peritoneal Amylase Pleural Fluid Source Pleural Color Pleural Appearance Pleural pH 7.55 H (7.3-7.4) Pleural WBC (Auto) /uL Pleural RBC (Auto) /uL Pleural Total Protein < 3.0 gm/dl Pleural LDH 71 U/L Pleural Glucose 124 mg/dl Pleural Amylase < 10 U/L Pleural Cholesterol Pending 12/10/22 Range/Units 13:00 WBC (4.8-10.8) K/ul RBC (4.70-6.10) M/uL Hgb (14.0-18.0) g/dl Hct (42.0-52.0) % MCV (80.0-100.0) fL MCH (25.0-34.0) pg MCHC (32.0-36.0) g/dL RDW Std Deviation (36.4-46.3) fL RDW Coeff of Farzad (11.5-14.5) % Plt Count (130-400) K/uL MPV (9.4-12.4) fL Sodium (136-145) mmol/L Potassium (3.5-5.1) mmol/L Chloride (98-107) mmol/L Carbon Dioxide (21-32) mmol/L Anion Gap (3-11) BUN (6-23) mg/dl Creatinine (0.6-1.4) mg/dl Est Cr Clr Drug Dosing ml/min Est GFR ( Amer) ml/min Est GFR (Non-Af Amer) ml/min BUN/Creatinine Ratio (10-20) Glucose (70-99(Fasting)) mg/dl Calcium (8.5-10.1) mg/dl Phosphorus (2.5-4.9) mg/dl Magnesium (1.7-2.4) mg/dl Fluid Neutrophils % % Fluid Lymphocytes % % Fluid Meso/Macro/[place] % % Fluid Slide Review Fluid Comment Peritoneal LDH Cancelled Peritoneal Glucose Cancelled Peritoneal Amylase Cancelled Pleural Fluid Source Pleural Color Pleural Appearance Pleural pH (7.3-7.4) Pleural WBC (Auto) /uL Pleural RBC (Auto) /uL Pleural Total Protein gm/dl Pleural LDH U/L Pleural Glucose mg/dl Pleural Amylase U/L Pleural Cholesterol Medications Administered Current Inpatient Medications Acetaminophen (Acetaminophen 325 Mg Tab) 650 mg PO Q4H PRN PRN Reason: Pain or Fever Stop: 01/07/23 21:19 Last Admin: 12/10/22 22:16 Dose: 650 mg Al Hydrox/Mg Hydrox/Simethicone (Aluminum/Magnesium Susp 30 Ml Udc) 15 ml PO Q4H PRN PRN Reason: Dyspepsia Stop: 01/07/23 21:19 Last Admin: 12/10/22 20:19 Dose: 15 ml Allopurinol (Allopurinol 100 Mg Tab) 200 mg PO BID [facility] Stop: 01/07/23 21:59 Last Admin: 12/10/22 20:24 Dose: 200 mg Diclofenac Sodium (Diclofenac Sod 1% Gel 100 Gm Tube) 2 gm EXT QID PRN; Protocol PRN Reason: Knee Pain Stop: 01/07/23 21:19 Folic Acid (Folic Acid 1 Mg Tab) 1 mg PO DAILY [facility] Stop: 01/08/23 08:59 Last Admin: 12/10/22 09:03 Dose: 1 mg Furosemide (Furosemide 40 Mg/4 Ml Vial) 60 mg IV BID17 [facility] Stop: 01/08/23 08:59 Last Admin: 12/10/22 16:40 Dose: 60 mg Guaifenesin (Guaifenesin 600 Mg Tabcr) 600 mg PO Q12 [facility] Stop: 01/08/23 17:24 Last Admin: 12/10/22 20:24 Dose: 600 mg Magnesium Hydroxide (Magnesium Hydroxide Susp 30 Ml Udc) 30 ml PO Q12H PRN PRN Reason: Constipation Stop: 01/07/23 21:19 Last Admin: 12/10/22 09:09 Dose: 30 ml Magnesium Oxide (Magnesium Oxide 400 Mg Tab) 400 mg PO BID [facility] Stop: 01/09/23 08:59 Last Admin: 12/10/22 20:24 Dose: 400 mg Multivitamins (Multivitamin Tab) 1 tab PO DAILY [facility] Stop: 01/08/23 08:59 Last Admin: 12/10/22 09:03 Dose: 1 tab Ondansetron HCl (Ondansetron Inj 2 Mg/Ml 2 Ml Vial) 4 mg IV Q6H PRN PRN Reason: Nausea Stop: 01/07/23 21:19 Pantoprazole Sodium (Pantoprazole 40 Mg Tab) 40 mg PO QAM [facility] Stop: 01/08/23 09:29 Last Admin: 12/10/22 09:04 Dose: 40 mg Polyethylene Glycol (Polyethylene (Miralax) 17 Gm Pack) 17 gm PO DAILY PRN PRN Reason: Constipation Stop: 01/07/23 21:19 Potassium Chloride (Potassium Chloride Crtab 20 Meq Tabcr) 40 meq PO BID [facility] Stop: 01/09/23 20:09 Last Admin: 12/10/22 20:19 Dose: 40 meq Sodium Chloride (Sodium Chloride 0.65% Na Soln 45 Ml ([place])) 2 sprays NA TID PRN PRN Reason: Nasal dryness Stop: 01/09/23 22:45 Last Admin: 12/10/22 23:01 Dose: 2 sprays Spironolactone (Spironolactone 100 Mg Tab) 100 mg PO BID [facility] Stop: 01/08/23 08:59 Last Admin: 12/10/22 20:23 Dose: 100 mg Tamsulosin HCl (Tamsulosin Hcl 0.4 Mg Cap) 0.4 mg PO DAILY [facility] Stop: 01/08/23 08:59 Last Admin: 12/10/22 09:03 Dose: 0.4 mg Thiamine HCl (Thiamine Hcl 100 Mg Tab) 100 mg PO DAILY [facility] Stop: 01/08/23 08:59 Last Admin: 12/10/22 09:03 Dose: 100 mg Zinc Sulfate (Zinc Sulfate 220 Mg Capsule) 220 mg PO DAILY [facility] Stop: 01/08/23 08:59 Last Admin: 12/10/22 09:03 Dose: 220 mg
--- NOTE | 2022-12-11 08:25 | Pulmonology Progress Note ---
Date of Service December 11, 2022 Assessment & Plan (1) Hydrothorax: (2) Dyspnea: (3) Hypoxemia: Plan 2 L of pleural fluid removed from the right hemithorax 12/10/2022. Fluid is transudative consistent with the patient's hepatic hydrothorax. Continue diuresis and consider outpatient TIPS evaluation. Follow cultures and cytology. No clear signs of infection at this time. Evaluate for home oxygen needs prior to discharge. Dyspnea improved. Pulmonary to sign off at this time. Thank you for the consultation. Admission and Anticipated Discharge Date Admission Date: December 08, 2022 Subjective Shortness of breath and hypoxemia improved from yesterday. Patient denies any significant chest pain, nausea or vomiting. Review of Systems Review of Systems: All systems reviewed & are unremarkable except as noted in HPI & below Physical Exam Physical Exam: Constitutional: Patient appears to be of their stated age. Patient is in no apparent distress. Patient is well-developed. Eyes: Pupils are equal round and reactive to light. Conjunctivae are normal. Anicteric sclera. Ears nose, mouth and throat: Mallampati class 2. Normal posterior oropharynx. Uvula is midline. Neck: Trachea is midline. Visual inspection is normal. Respiratory: Diminished at the right lung base with crackles. No tachypnea. Cardiovascular: Regular rate and rhythm. No murmurs. 4+ pitting edema in lower noted in the lower extremities. Gastrointestinal: Distended abdomen. Positive fluid wave. Musculoskeletal: No cyanosis. Patient is able to move all extremities. Strength is 5 out of 5 in the upper and lower extremities. Skin: No rashes, warm dry and intact. Neurologic: No obvious focal neurological deficits seen. Psychiatric: Alert and oriented x3 with a euthymic affect. Results & Data Results & Data ([facility]) Vital Signs (Past 12 Hours) Vital Signs Temp Pulse Pulse Resp BP Pulse Ox O2 Del Method 12/11/22 07:30 36.9 C 98 H 20 120/71 93 Nasal Cannula 12/11/22 03:40 36.9 C 100 H 21 124/83 95 Nasal Cannula 12/10/22 23:25 105 H 12/10/22 22:13 37 C 107 H 18 108/73 94 Nasal Cannula 12/10/22 20:30 Nasal Cannula O2 Flow Rate 12/11/22 07:30 2 12/11/22 03:40 2 12/10/22 23:25 12/10/22 22:13 2 12/10/22 20:30 3 PG Care Time/CCT Total # of Minutes Spent Total Time Spent with Patient: Total time spent is greater than 50% in coordination of care (as documented) at patient's floor/unit and/or counseling patient: Coding Level of Care Code 28243 SUB INP/OBS CARE 2/35MIN Diagnoses Hydrothorax J94.8 Dyspnea R06.00 Hypoxemia R09.02
[2022-12-11] MEDS: FOLIC ACID 1 MG TAB PO SCH (08:42)
[2022-12-11] MEDS: allopurinoL 100 MG TAB PO SCH ×2 (08:42→19:59)
[2022-12-11] MEDS: FUROSEMIDE 40 MG/4 ML VIAL IV SCH ×2 (08:43→16:23)
[2022-12-11] MEDS: guaiFENesin 600 MG TABCR PO SCH ×2 (08:43→19:59)
[2022-12-11] MEDS: MAGNESIUM OXIDE 400 MG TAB PO SCH ×2 (08:44→19:58)
[2022-12-11] MEDS: MULTIVITAMIN TAB PO SCH (08:45)
[2022-12-11] MEDS: POTASSIUM CHLORIDE CRTAB 20 MEQ TABCR PO SCH ×2 (08:45→19:59)
[2022-12-11] MEDS: PANTOprazole 40 MG TAB PO SCH (08:45)
[2022-12-11] MEDS: THIAMINE HCL 100 MG TAB PO SCH (08:46)
[2022-12-11] MEDS: SPIRONOLACTONE 100 MG TAB PO SCH ×2 (08:46→19:58)
[2022-12-11] MEDS: TAMSULOSIN HCL 0.4 MG CAP PO SCH (08:46)
[2022-12-11] MEDS: ZINC SULFATE 220 MG CAPSULE PO SCH (08:47)
[2022-12-11] MEDS: ALUMINUM/MAGNESIUM SUSP 30 ML UDC PO PRN (08:57)
[2022-12-12 07:25] LABS: Hematocrit (blood only) 36.7 % (42.0-52.0); Mean Corpuscular Hemoglobin 31.8 pg (25.0-34.0); Mean Corpuscular Hgb Conc 35.4 g/dL (32.0-36.0); Mean Corpuscular Volume 89.7 fL (80.0-100.0); Mean Platelet Volume 9.5 fL (9.4-12.4); Platelet Count 128 K/uL (130-400); RDW Coefficient of Variation 16.7 % (11.5-14.5); RDW Standard Deviation 53.6 fL (36.4-46.3); Red Blood Count 4.09 M/uL (4.70-6.10); White Blood Count 3.82 K/ul (4.8-10.8)
[2022-12-12 07:43] LABS: Calcium 8.7 mg/dl (8.5-10.1); Est GFR (African American) 110.8 ml/min; Est GFR (Non-African American) 95.6 ml/min; Magnesium 1.7 mg/dl (1.7-2.4); Phosphorus 3.5 mg/dl (2.5-4.9); Potassium 3.6 mmol/L (3.5-5.1)
[2022-12-12] MEDS: MAGNESIUM OXIDE 400 MG TAB PO SCH ×2 (07:57→20:01)
[2022-12-12] MEDS: POTASSIUM CHLORIDE CRTAB 20 MEQ TABCR PO SCH ×2 (07:57→20:00)
[2022-12-12] MEDS: SPIRONOLACTONE 100 MG TAB PO SCH ×2 (07:57→20:00)
[2022-12-12] MEDS: guaiFENesin 600 MG TABCR PO SCH ×2 (07:58→20:00)
[2022-12-12] MEDS: TAMSULOSIN HCL 0.4 MG CAP PO SCH (07:58)
[2022-12-12] MEDS: PANTOprazole 40 MG TAB PO SCH (07:58)
[2022-12-12] MEDS: FOLIC ACID 1 MG TAB PO SCH (07:58)
[2022-12-12] MEDS: allopurinoL 100 MG TAB PO SCH ×2 (07:58→20:01)
[2022-12-12] MEDS: ZINC SULFATE 220 MG CAPSULE PO SCH (07:58)
[2022-12-12] MEDS: THIAMINE HCL 100 MG TAB PO SCH (07:58)
[2022-12-12] MEDS: MULTIVITAMIN TAB PO SCH (07:59)
[2022-12-12] MEDS: FUROSEMIDE 40 MG/4 ML VIAL IV SCH (07:59)
[2022-12-12] MEDS: ALUMINUM/MAGNESIUM SUSP 30 ML UDC PO PRN ×2 (08:04→20:05)
--- NOTE | 2022-12-12 10:32 | Hospitalist Progress Note ---
Date of Service December 12, 2022 Assessment & Plan (1) Decompensation of cirrhosis of liver: (2) Anasarca: (3) Ascites due to alcoholic cirrhosis: (4) Portal hypertensive gastropathy: (5) Alcoholic cirrhosis of liver with ascites: Plan This is a 62-year-old male who has significant past medical history of alcoholic cirrhosis of liver with ascites, portal hypertensive gastropathy, MARCO, hypertension, thrombocytopenia, history of MRSA who presents to ED at referral of cardiology in setting of decompensated cirrhosis. Decompensated cirrhosis Anasarca Alcoholic cirrhosis of liver with ascites Portal hypertensive gastropathy Admitted to PCU MELD 8 Gastroenterology consulted Diuresis with IV Lasix 60 mg twice daily Continue Aldactone 100 mg twice daily Strict I's and O's, daily weights Fluid restrict 1800 mL Perform diagnostic and therapeutic paracentesis with cell count, protein, LDH albumin Patient diuresed quite a bit with IV Lasix and spironolactone. He was taken for paracentesis on (12/09), however despite significant abdominal distention, only small ascites identified on ultrasound Continued to be diuresing well, however still continued to use supplemental oxygen Repeated chest x-ray, showed right pleural effusion (12/10) Pulmonary medicine consulted and pt underwent thoracentesis, 2L of fluid removed , transudate (12/10) Consider outpt eval for TIPS procedure, may need 2 step study prior to DC Cultures and cytology - pending Acute resp. failure w/ hypoxia - initially on 4 L - secondary to above - cont. diuresis - currently on RA Hypomagnesemia replete and monitor Alcohol abuse pt with long standing hx of alcohol use do not feel pt requires AWSS protocol at this time continue thiamine and folic acid Admission and Anticipated Discharge Date Admission Date: December 08, 2022 Subjective Pt seen in follow up of resp. failure w/ hypoxia, d/t fluid overload, decompensated cirrhosis Currently patient is sitting up in bed, in no acute distress, now breathing comfortably on RA He has diuresed quite well since his admission He was taken for paracentesis, however despite significant abdominal distention, no significant ascites identified on ultrasound Pt underwent right thoracentesis, with 2 L of fluid removed No fevers chills or chest pain. Minimal abdominal discomfort. Review of Systems Review of Systems: All systems reviewed & are unremarkable except as noted in Subjective Physical Exam Physical Exam: General: Obese M, in no acute distress, on RA Eyes: PERRL, EOMI. conjunctivae normal, anicteric sclerae ENMT: External ear and nose normal, oropharynx normal Respiratory: Normal respiratory effort, no respiratory distress,diminished breath sounds at lung bases (R>L), improved Cardiovascular: RRR, S1 S2 Gastrointestinal (Abdomen): Abdomen is markedly distended, non-tender to palpation, normal bowel sounds Musculoskeletal: + LE edema b/l (improved) Neuro/Psych: Alert and oriented x 3, speech fluent, no facial asymmetry, moves extremities Results & Data Results & Data ([facility]) Vital Signs (Past 12 Hours) Vital Signs Temp Pulse Resp BP Pulse Ox O2 Del Method 12/12/22 07:15 36.8 C 98 H 21 117/72 92 Room Air 12/12/22 03:18 37.0 C 111 H 20 113/75 91 Room Air 12/12/22 00:20 Room Air Laboratory Results 12/12/22 12/12/22 Range/Units 06:35 06:35 WBC 3.82 L (4.8-10.8) K/ul RBC 4.09 L (4.70-6.10) M/uL Hgb 13.0 L (14.0-18.0) g/dl Hct 36.7 L (42.0-52.0) % MCV 89.7 (80.0-100.0) fL MCH 31.8 (25.0-34.0) pg MCHC 35.4 (32.0-36.0) g/dL RDW Std Deviation 53.6 H (36.4-46.3) fL RDW Coeff of Farzad 16.7 H (11.5-14.5) % Plt Count 128 L (130-400) K/uL MPV 9.5 (9.4-12.4) fL Sodium 132 L (136-145) mmol/L Potassium 3.6 (3.5-5.1) mmol/L Chloride 93 L (98-107) mmol/L Carbon Dioxide 34 H (21-32) mmol/L Anion Gap 5 (3-11) BUN 15 (6-23) mg/dl Creatinine 0.79 (0.6-1.4) mg/dl Est Cr Clr Drug Dosing 130.0 ml/min Est GFR ( Amer) 110.8 ml/min Est GFR (Non-Af Amer) 95.6 ml/min BUN/Creatinine Ratio 19.0 (10-20) Glucose 99 (70-99(Fasting)) mg/dl Calcium 8.7 (8.5-10.1) mg/dl Phosphorus 3.5 (2.5-4.9) mg/dl Magnesium 1.7 (1.7-2.4) mg/dl Medications Administered Current Inpatient Medications Acetaminophen (Acetaminophen 325 Mg Tab) 650 mg PO Q4H PRN PRN Reason: Pain or Fever Stop: 01/07/23 21:19 Last Admin: 12/10/22 22:16 Dose: 650 mg Al Hydrox/Mg Hydrox/Simethicone (Aluminum/Magnesium Susp 30 Ml Udc) 15 ml PO Q4H PRN PRN Reason: Dyspepsia Stop: 01/07/23 21:19 Last Admin: 12/12/22 08:04 Dose: 15 ml Allopurinol (Allopurinol 100 Mg Tab) 200 mg PO BID [facility] Stop: 01/07/23 21:59 Last Admin: 12/12/22 07:58 Dose: 200 mg Diclofenac Sodium (Diclofenac Sod 1% Gel 100 Gm Tube) 2 gm EXT QID PRN; Protocol PRN Reason: Knee Pain Stop: 01/07/23 21:19 Folic Acid (Folic Acid 1 Mg Tab) 1 mg PO DAILY [facility] Stop: 01/08/23 08:59 Last Admin: 12/12/22 07:58 Dose: 1 mg Furosemide (Furosemide 40 Mg/4 Ml Vial) 60 mg IV [id number] [facility] Stop: 01/08/23 08:59 Last Admin: 12/12/22 07:59 Dose: 60 mg Guaifenesin (Guaifenesin 600 Mg Tabcr) 600 mg PO Q12 [facility] Stop: 01/08/23 17:24 Last Admin: 12/12/22 07:58 Dose: 600 mg Magnesium Hydroxide (Magnesium Hydroxide Susp 30 Ml Udc) 30 ml PO Q12H PRN PRN Reason: Constipation Stop: 01/07/23 21:19 Last Admin: 12/10/22 09:09 Dose: 30 ml Magnesium Oxide (Magnesium Oxide 400 Mg Tab) 400 mg PO BID [facility] Stop: 01/09/23 08:59 Last Admin: 12/12/22 07:57 Dose: 400 mg Multivitamins (Multivitamin Tab) 1 tab PO DAILY [facility] Stop: 01/08/23 08:59 Last Admin: 12/12/22 07:59 Dose: 1 tab Ondansetron HCl (Ondansetron Inj 2 Mg/Ml 2 Ml Vial) 4 mg IV Q6H PRN PRN Reason: Nausea Stop: 01/07/23 21:19 Pantoprazole Sodium (Pantoprazole 40 Mg Tab) 40 mg PO QAM [facility] Stop: 01/08/23 09:29 Last Admin: 12/12/22 07:58 Dose: 40 mg Polyethylene Glycol (Polyethylene (Miralax) 17 Gm Pack) 17 gm PO DAILY PRN PRN Reason: Constipation Stop: 01/07/23 21:19 Potassium Chloride (Potassium Chloride Crtab 20 Meq Tabcr) 40 meq PO BID [facility] Stop: 01/09/23 20:09 Last Admin: 12/12/22 07:57 Dose: 40 meq Sodium Chloride (Sodium Chloride 0.65% Na Soln 45 Ml ([place])) 2 sprays NA TID PRN PRN Reason: Nasal dryness Stop: 01/09/23 22:45 Last Admin: 12/10/22 23:01 Dose: 2 sprays Spironolactone (Spironolactone 100 Mg Tab) 100 mg PO BID [facility] Stop: 01/08/23 08:59 Last Admin: 12/12/22 07:57 Dose: 100 mg Tamsulosin HCl (Tamsulosin Hcl 0.4 Mg Cap) 0.4 mg PO DAILY [facility] Stop: 01/08/23 08:59 Last Admin: 12/12/22 07:58 Dose: 0.4 mg Thiamine HCl (Thiamine Hcl 100 Mg Tab) 100 mg PO DAILY [facility] Stop: 01/08/23 08:59 Last Admin: 12/12/22 07:58 Dose: 100 mg Zinc Sulfate (Zinc Sulfate 220 Mg Capsule) 220 mg PO DAILY [facility] Stop: 01/08/23 08:59 Last Admin: 12/12/22 07:58 Dose: 220 mg
[2022-12-12] MEDS ORDERED: MAGNESIUM SULFATE / D5W 1 GM/100 ML BAG IV ONE (10:45)
[2022-12-12] MEDS: DICLOFENAC SOD 1% GEL 100 GM TUBE EXT PRN (15:30)
[2022-12-12] MEDS: FUROSEMIDE 20 MG TAB PO SCH (16:07)
[2022-12-13 07:47] LABS: BUN Creatinine Ratio 20.7 (10-20); Creatinine Clr Calc Pharmacy 117.6 ml/min; Est GFR (African American) 106.5 ml/min; Est GFR (Non-African American) 91.9 ml/min; Magnesium 1.8 mg/dl (1.7-2.4); Phosphorus 3.6 mg/dl (2.5-4.9); Potassium 3.6 mmol/L (3.5-5.1)
[2022-12-13] MEDS: PANTOprazole 40 MG TAB PO SCH (08:36)
[2022-12-13] MEDS: POTASSIUM CHLORIDE CRTAB 20 MEQ TABCR PO SCH ×2 (08:36→20:09)
[2022-12-13] MEDS: MULTIVITAMIN TAB PO SCH (08:36)
[2022-12-13] MEDS: guaiFENesin 600 MG TABCR PO SCH ×2 (08:36→20:09)
[2022-12-13] MEDS: ZINC SULFATE 220 MG CAPSULE PO SCH (08:36)
[2022-12-13] MEDS: allopurinoL 100 MG TAB PO SCH ×2 (08:36→20:09)
[2022-12-13] MEDS: FUROSEMIDE 20 MG TAB PO SCH ×2 (08:36→16:29)
[2022-12-13] MEDS: MAGNESIUM OXIDE 400 MG TAB PO SCH ×2 (08:36→20:09)
[2022-12-13] MEDS: SPIRONOLACTONE 100 MG TAB PO SCH ×2 (08:36→20:09)
[2022-12-13] MEDS: FOLIC ACID 1 MG TAB PO SCH (08:36)
[2022-12-13] MEDS: TAMSULOSIN HCL 0.4 MG CAP PO SCH (08:36)
[2022-12-13] MEDS: THIAMINE HCL 100 MG TAB PO SCH (08:37)
[2022-12-13] MEDS: ALUMINUM/MAGNESIUM SUSP 30 ML UDC PO PRN (08:45)
--- NOTE | 2022-12-13 10:33 | Hospitalist Progress Note ---
Date of Service December 13, 2022 Assessment & Plan (1) Decompensation of cirrhosis of liver: (2) Anasarca: (3) Ascites due to alcoholic cirrhosis: (4) Portal hypertensive gastropathy: (5) Alcoholic cirrhosis of liver with ascites: (6) Sinus tachycardia: Plan This is a 62-year-old male who has significant past medical history of alcoholic cirrhosis of liver with ascites, portal hypertensive gastropathy, MARCO, hypertension, thrombocytopenia, history of MRSA who presents to ED at referral of cardiology in setting of decompensated cirrhosis. Decompensated cirrhosis Anasarca Alcoholic cirrhosis of liver with ascites Portal hypertensive gastropathy Admitted to PCU MELD 8 Gastroenterology consulted continues on Lasix 60mg PO BID/aldactone 100mg PO BID per GI and nephro recommendations. Strict I's and O's, daily weights Fluid restrict 1800 mL Not enough fluid for paracentesis this admission based on imaging Patient diuresed quite a bit with IV Lasix and spironolactone. He was taken for paracentesis on (12/09), however despite significant abdominal distention, only small ascites identified on ultrasound Continued to be diuresing well, however still continued to use supplemental oxygen Repeated chest x-ray, showed right pleural effusion (12/10) Pulmonary medicine consulted and pt underwent thoracentesis, 2L of fluid removed , transudate (12/10) Consider outpt eval for TIPS procedure Acute resp. failure w/ hypoxia - initially on 4 L - secondary to above - cont. diuresis - currently on RA Sinus tachycardia -no evidence of varices on most recent EGD <1 yr ago. -will hold off adding propranolol unless persistently high in am Hypomagnesemia replete and monitor Alcohol abuse pt with long standing hx of alcohol use no evidence of withdrawal at this time. continue thiamine and folic acid DO Galen Harper Hospitalist Admission and Anticipated Discharge Date Admission Date: December 08, 2022 Subjective Pt seen in follow up of resp. failure w/ hypoxia, d/t fluid overload, decompensated cirrhosis Currently patient is sitting up in bed, in no acute distress, now breathing comfortably on RA He has diuresed quite well since his admission He was taken for paracentesis, however despite significant abdominal distention, no significant ascites identified on ultrasound Pt underwent right thoracentesis, with 2 L of fluid removed No fevers chills or chest pain. No abdominal discomfort reported today He feels that he is breathing more easily after the thoracentesis. Review of Systems Review of Systems: all systems were reviewed and negative except as indicated on subjective above. Physical Exam Physical Exam: CONSTITUTIONAL: morbidly obese vitals as above, generally well-appearing, NAD EYES: normal conjunctivae, no scleral icterus ENT: external ear and nose normal, MMM NECK: trachea midline RESPIRATORY: clear to auscultation bilaterally, no crackles, rales or wheezes, normal respiratory effort CARDIOVASCULAR: regular rate and rhythm, S1 and 2 heard without murmurs, gallops or rubs, no JVD, no peripheral edema CHEST: inspection of chest was normal GASTROINTESTINAL: soft, nontender, ND, no guarding, protuberant abdomen with no fluid wave MUSCULOSKELETAL: strength 5/5 throughout, head is normocephalic and atraumatic SKIN: warm and dry NEUROLOGIC: CN 2-12 grossly intact, no sensory deficit, normal cognition, normal speech, no tremor PSYCHIATRIC: alert cooperative and oriented to person, place and time. Euthymic mood, makes good eye contact, language grossly intact, recent and remote memory grossly intact. Results & Data Results & Data ([facility]) Vital Signs (Past 12 Hours) Vital Signs Temp Pulse Resp BP Pulse Ox O2 Del Method 12/13/22 07:31 36.4 C L 94 H 18 144/89 H 92 Room Air 12/13/22 05:27 88 Room Air 12/13/22 05:05 120/83 93 Room Air 12/13/22 03:10 36.6 C 97 H 16 152/84 H 92 Room Air 12/13/22 02:33 90 Room Air 12/12/22 23:46 98 H Room Air Laboratory Results [facility] 12/13/22 06:57 Sodium 132 L Potassium 3.6 Chloride 94 L Carbon Dioxide 33 H BUN 18 Creatinine 0.87 Glucose 98 Calcium 9.0 Medications Administered Current Inpatient Medications Acetaminophen (Acetaminophen 325 Mg Tab) 650 mg PO Q4H PRN PRN Reason: Pain or Fever Stop: 01/07/23 21:19 Last Admin: 12/10/22 22:16 Dose: 650 mg Al Hydrox/Mg Hydrox/Simethicone (Aluminum/Magnesium Susp 30 Ml Udc) 15 ml PO Q4H PRN PRN Reason: Dyspepsia Stop: 01/07/23 21:19 Last Admin: 12/13/22 08:45 Dose: 15 ml Allopurinol (Allopurinol 100 Mg Tab) 200 mg PO BID [facility] Stop: 01/07/23 21:59 Last Admin: 12/13/22 08:36 Dose: 200 mg Diclofenac Sodium (Diclofenac Sod 1% Gel 100 Gm Tube) 2 gm EXT QID PRN; Protocol PRN Reason: Knee Pain Stop: 01/07/23 21:19 Last Admin: 12/12/22 15:30 Dose: 2 gm Folic Acid (Folic Acid 1 Mg Tab) 1 mg PO DAILY [facility] Stop: 01/08/23 08:59 Last Admin: 12/13/22 08:36 Dose: 1 mg Furosemide (Furosemide 20 Mg Tab) 60 mg PO BID17 [facility] Stop: 01/11/23 16:59 Last Admin: 12/13/22 08:36 Dose: 60 mg Guaifenesin (Guaifenesin 600 Mg Tabcr) 600 mg PO Q12 [facility] Stop: 01/08/23 17:24 Last Admin: 12/13/22 08:36 Dose: 600 mg Magnesium Hydroxide (Magnesium Hydroxide Susp 30 Ml Udc) 30 ml PO Q12H PRN PRN Reason: Constipation Stop: 01/07/23 21:19 Last Admin: 12/10/22 09:09 Dose: 30 ml Magnesium Oxide (Magnesium Oxide 400 Mg Tab) 400 mg PO BID [facility]IAN Stop: 01/09/23 08:59 Last Admin: 12/13/22 08:36 Dose: 400 mg Multivitamins (Multivitamin Tab) 1 tab PO DAILY [facility] Stop: 01/08/23 08:59 Last Admin: 12/13/22 08:36 Dose: 1 tab Ondansetron HCl (Ondansetron Inj 2 Mg/Ml 2 Ml Vial) 4 mg IV Q6H PRN PRN Reason: Nausea Stop: 01/07/23 21:19 Pantoprazole Sodium (Pantoprazole 40 Mg Tab) 40 mg PO QAM [facility] Stop: 01/08/23 09:29 Last Admin: 12/13/22 08:36 Dose: 40 mg Polyethylene Glycol (Polyethylene (Miralax) 17 Gm Pack) 17 gm PO DAILY PRN PRN Reason: Constipation Stop: 01/07/23 21:19 Potassium Chloride (Potassium Chloride Crtab 20 Meq Tabcr) 40 meq PO BID [facility] Stop: 01/09/23 20:09 Last Admin: 12/13/22 08:36 Dose: 40 meq Sodium Chloride (Sodium Chloride 0.65% Na Soln 45 Ml ([place]ves)) 2 sprays NA TID PRN PRN Reason: Nasal dryness Stop: 01/09/23 22:45 Last Admin: 12/10/22 23:01 Dose: 2 sprays Spironolactone (Spironolactone 100 Mg Tab) 100 mg PO BID [facility] Stop: 01/08/23 08:59 Last Admin: 12/13/22 08:36 Dose: 100 mg Tamsulosin HCl (Tamsulosin Hcl 0.4 Mg Cap) 0.4 mg PO DAILY [facility] Stop: 01/08/23 08:59 Last Admin: 12/13/22 08:36 Dose: 0.4 mg Thiamine HCl (Thiamine Hcl 100 Mg Tab) 100 mg PO DAILY [facility]IAN Stop: 01/08/23 08:59 Last Admin: 12/13/22 08:37 Dose: 100 mg Zinc Sulfate (Zinc Sulfate 220 Mg Capsule) 220 mg PO DAILY [facility] Stop: 01/08/23 08:59 Last Admin: 12/13/22 08:36 Dose: 220 mg
--- NOTE | 2022-12-13 12:00 | XRay Report ---
XR chest 1V portable CLINICAL HISTORY: re-eval pleural effusion COMPARISON STUDY: Chest radiograph December 10, 2022. FINDINGS: There is no pneumothorax. Right pleural effusion has decreased in size since exam of 2022. Moderate residual pleural effusion is noted. There is associated right basilar opacity. Old right-sided rib fractures are present. There is pulmonary vascular congestion without overt pulmo nary edema. Cardiomegaly is unchanged. IMPRESSION: 1. Interval decrease in size of the right pleural effusion. Moderate residual right pleural effusion with associated right basilar opacity. 2. Pulmonary vascular congestion without overt pulmonary edema. ACT 112: Negative or not required by law. Electronically signed by: Osiel Ash M.D. 12/13/2022 11:58 AM
[2022-12-13] MEDS: DICLOFENAC SOD 1% GEL 100 GM TUBE EXT PRN (19:18)
[2022-12-14 08:04] LABS: BUN Creatinine Ratio 24.7 (10-20); Calcium 9.5 mg/dl (8.5-10.1); Creatinine Clr Calc Pharmacy 111.4 ml/min; Est GFR (African American) 105.5 ml/min; Potassium 3.8 mmol/L (3.5-5.1)
[2022-12-14] MEDS: MULTIVITAMIN TAB PO SCH (08:25)
[2022-12-14] MEDS: guaiFENesin 600 MG TABCR PO SCH (08:25)
[2022-12-14] MEDS: THIAMINE HCL 100 MG TAB PO SCH (08:26)
[2022-12-14] MEDS: FUROSEMIDE 20 MG TAB PO SCH ×2 (08:26→16:58)
[2022-12-14] MEDS: ZINC SULFATE 220 MG CAPSULE PO SCH (08:26)
[2022-12-14] MEDS: PANTOprazole 40 MG TAB PO SCH (08:26)
[2022-12-14] MEDS: SPIRONOLACTONE 100 MG TAB PO SCH (08:26)
[2022-12-14] MEDS: TAMSULOSIN HCL 0.4 MG CAP PO SCH (08:26)
[2022-12-14] MEDS: FOLIC ACID 1 MG TAB PO SCH (08:26)
[2022-12-14] MEDS: MAGNESIUM OXIDE 400 MG TAB PO SCH (08:26)
[2022-12-14] MEDS: allopurinoL 100 MG TAB PO SCH (08:26)
[2022-12-14] MEDS: DICLOFENAC SOD 1% GEL 100 GM TUBE EXT PRN (08:27)
[2022-12-14] MEDS: ALUMINUM/MAGNESIUM SUSP 30 ML UDC PO PRN (08:33)
[2022-12-14] MEDS: POTASSIUM CHLORIDE CRTAB 20 MEQ TABCR PO SCH (08:33)
--- NOTE | 2022-12-14 12:30 | Discharge Summary ---
Discharge Summary Date of Service December 14, 2022 Admission HPI Per Admitting Provider This is a 62-year-old male who has significant past medical history of alcoholic cirrhosis of liver with ascites, portal hypertensive gastropathy, MARCO, hypertension, thrombocytopenia, history of MRSA who presents to ED at referral of cardiology in setting of decompensated cirrhosis. He was sent to Cardiology today from PCP due to fluid retention. Site Identification Specialist referred to ER due to anasarca 2/2 Cirrhosis. Pt c/o of SOB since yesterday. He reports worsened lower extremity swelling and abd distension over past 2-3 weeks. He last had a paracentesis in October. He was last hospitalized in September and requiring a SNF stay for rehab. He denies f/c/s, chest pain, URI sx, n/v/d, abd pain, change in bowel or urinary habits. He follows with GI, Dr. Fields. He does admit to not always being compliant with his meds due to travel, etc. Pt reports being under a lot of stress the past week due to roommate having a run in with the law. Due to stress he hasn't be taking meds as prescribed. He does ambulate with a walker due to knee pain. He does have chronic wounds to lower ext with which he has wrapped once a week.He does not wish to return to rehab as he wishes to save his days for upcoming knee replacement. He does wish to have help with finding subsequent housing.In ED patient made hemodynamically stable although mildly hypertensive and tachycardic.He did have anasarca along with significant ascites. CBC and CMP concerning for sodium 134, mag 1.5, DBC 4.23 and H&H stable 14.1 and 40.7. Chest x-ray with significant layering right-sided pleural effusion. He received Lasix 80 mg IV along with spironolactone 100 mg x 1. Principal Dx & Hospital Course #1 = Principal Diagnosis (1) Decompensation of cirrhosis of liver: (2) Anasarca: (3) Ascites due to alcoholic cirrhosis: (4) Portal hypertensive gastropathy: (5) Alcoholic cirrhosis of liver with ascites: (6) Sinus tachycardia: Plan This is a 62-year-old male who has significant past medical history of alcoholic cirrhosis of liver with ascites, portal hypertensive gastropathy, MARCO, hypertension, thrombocytopenia, history of MRSA who presents to ED at referral of cardiology in setting of decompensated cirrhosis. Decompensated cirrhosis Anasarca Alcoholic cirrhosis of liver with ascites Portal hypertensive gastropathy Admitted to PCU MELD 8 Gastroenterology consulted continues on Lasix 60mg PO BID/aldactone 100mg PO BID per GI and nephro recommendations. Strict I's and O's, daily weights Fluid restrict 1800 mL Not enough fluid for paracentesis this admission based on imaging Patient diuresed quite a bit with IV Lasix and spironolactone. He was taken for paracentesis on (12/09), however despite significant abdominal distention, only small ascites identified on ultrasound Continued to be diuresing well, however still continued to use supplemental oxygen Repeated chest x-ray, showed right pleural effusion (12/10) Pulmonary medicine consulted and pt underwent thoracentesis, 2L of fluid removed , transudate (12/10) Consider outpt eval for TIPS procedure Acute resp. failure w/ hypoxia - initially on 4 L - secondary to above - cont. diuresis - currently on RA Sinus tachycardia -no evidence of varices on most recent EGD <1 yr ago. -will hold off adding propranolol unless persistently high in am Hypomagnesemia replete and monitor Alcohol abuse pt with long standing hx of alcohol use no evidence of withdrawal at this time. continue thiamine and folic acid Cassi Kwon DO [facility] Hospitalist Discharge Exam CONSTITUTIONAL: morbidly obese vitals as above, generally well-appearing, NAD EYES: normal conjunctivae, no scleral icterus ENT: external ear and nose normal, MMM NECK: trachea midline RESPIRATORY: clear to auscultation bilaterally, no crackles, rales or wheezes, normal respiratory effort CARDIOVASCULAR: regular rate and rhythm, S1 and 2 heard without murmurs, gallops or rubs, no JVD, no peripheral edema CHEST: inspection of chest was normal GASTROINTESTINAL: soft, nontender, ND, no guarding, protuberant abdomen with no fluid wave MUSCULOSKELETAL: strength 5/5 throughout, head is normocephalic and atraumatic SKIN: warm and dry NEUROLOGIC: CN 2-12 grossly intact, no sensory deficit, normal cognition, normal speech, no tremor PSYCHIATRIC: alert cooperative and oriented to person, place and time. Euthymic mood, makes good eye contact, language grossly intact, recent and remote memory grossly intact. Updated Medication List Medication Instructions Recorded Confirmed Type acetaminophen 325 mg tablet 650 mg PO Q6 PRN FEVER/PAIN 12/08/22 12/08/22 History (Tylenol) allopurinol 100 mg tablet 200 mg PO BID 12/08/22 12/08/22 History calamine phenolated lotion 1 applic topical BID PRN ITCHINESS 12/08/22 12/08/22 History calcium carbonate 300 mg (750 mg) 300 mg PO Q6H PRN Heartburn 12/08/22 12/08/22 History chewable tablet (Tums E-X) cholestyramine-aspartame 4 gram 4 g PO BID PRN Diarrhea 12/08/22 12/08/22 History oral powder (Prevalite) cyclobenzaprine 10 mg tablet 10 mg PO BID PRN MUSCLE SPASMS 12/08/22 12/08/22 History diclofenac sodium 1 % topical gel 2 g topical QID PRN Pain 12/08/22 12/08/22 History diphenhydramine HCl 25 mg capsule 25 mg PO Q6H PRN Itching 12/08/22 12/08/22 History (Benadryl) folic acid 1 mg tablet 1 mg PO DAILY 12/08/22 12/08/22 History furosemide 40 mg tablet (Lasix) 80 mg PO QAM 12/08/22 12/08/22 History hydrocodone 10 mg-acetaminophen 1 tab PO Q8H PRN Pain 12/08/22 12/08/22 History 325 mg tablet loratadine 10 mg tablet (Claritin) 10 mg PO DAILY PRN ITCHINESS 12/08/22 12/08/22 History multivitamin 1 tab PO DAILY 12/08/22 12/08/22 History nystatin 100,000 unit/gram topical 1 applic topical BID PRN ABD FOLDS 12/08/22 12/08/22 History cream NEEDED ondansetron HCl 4 mg tablet 4 mg PO Q6H PRN NAUSEA/VOMITING 12/08/22 12/08/22 History potassium chloride 20 mEq 40 meq PO BID 12/08/22 12/08/22 History tablet,extended release(part/cryst) spironolactone 100 mg tablet 100 mg PO BID 12/08/22 12/08/22 History tamsulosin 0.4 mg capsule 0.4 mg PO DAILY 02/20/23 02/20/23 History thiamine HCl (vitamin B1) 100 mg 100 mg PO DAILY 12/08/22 12/08/22 History tablet (Vitamin B-1) vitamin E 670 mg (1,000 unit) 670 mg PO DAILY 12/08/22 12/08/22 History capsule zinc acetate 50 mg (zinc) capsule 50 mg PO DAILY 12/08/22 12/08/22 History furosemide 20 mg tablet 60 mg PO BID17 #60 tabs 12/14/22 Rx magnesium oxide 400 mg (241.3 mg 400 mg PO DAILY #30 tabs 12/14/22 Rx magnesium) tablet pantoprazole 40 mg tablet,delayed 40 mg PO QAM #30 tabs 12/14/22 Rx release Hospital Stay Data Consultations 12/08/22 18:14 ED Decision to Admit Stat 12/09/22 08:07 Consult Gastroenterology Routine 12/10/22 13:20 Consult Pulmonology Routine Diagnostic Imagining Performed 12/09/22 09:00 US duplex portal hepatic veins Routine 12/09/22 21:20 US abdomen ltd ascites Routine 12/10/22 13:47 US point of care ultrasound Urgent Pending Results Patient Have Any Pending Studies at Discharge: No Discharge Instructions Given to Patient (Per Discharging Provider) Please take all medications as instructed on discharge list below. Please completely avoid alcohol and do not use more than 2000mg of Tylenol (acetaminophen) in 24 hours Please stick to a low sodium diet, taking in no more than 2000mg of sodium each day. Please continue diuretics at current dose, but follow-up with your primary care provider at the date and time above to discuss any weight gain or other issues, and to consider labs. It was a pleasure taking care of you! Please call if you have any questions or problems. You can reach a [facility] hospitalist on duty at [facility] 24 hours a day by calling [phone]. Take care of yourself. Cassi Kwon, DO [facility] Hospitalist
== END 2022-12-14 18:21 | disposition home or self-care (01) | DRG 432 ==
LOC: ED 12:10 → SUATTDRO 18:35 → 2E 18:35 → 2N 12-12 18:56